=== PATIENT | female | born 1950 | race Caucasian/White ===

== ENCOUNTER 2023-01-21 11:24 | Outpatient (OUT) | payer MEDICARE, OTHER, SELFPAY ==
--- NOTE | 2023-01-21 11:27 | XR_ITS ---
[address] [address] Patient Name: YEE ANTUNEZ MRN: [id number] date: 1950 Sex: F Assigned Patient Location: RAD Current Patient Location: [facility] Accession/Order Number: [id number] Exam Date: 01/21/2023 11:42 Report Date: 01/21/2023 11:55 At the request of: NON-STAFF PHYSICIAN Procedure: XR DEXA axial skeleton EXAMINATION: XR DEXA axial skeleton HISTORY: Asymptomatic Menopause Z78.0 COMPARISON: DEXA bone densitometry 09/29/2020 TECHNIQUE: Dual-energy X-ray absorptiometry (DXA) was performed. FINDINGS: SPINE ANALYSIS: Average bone mineral density is 1.330 g/cm2. T-score (standard deviation relative to young adult mean): 1.2 . -6.6% change since prior study. HIP ANALYSIS: Lowest bone mineral density is within the left femoral trochanter, 0.66 g/cm2. T-score (standard deviation relative to young adult mean): -1.9 . -1.4% change since prior study. XR/XR DEXA axial skeleton IMPRESSION: [employer] [place] [employer] Classification: Osteopenia - Moderate Fracture Risk Electronically authenticated by: HA CARDOSO Date: 01/21/2023 11:55
== END 2023-01-21 11:25 | disposition home or self-care (01) ==
LOC: RAD 11:24
PROVIDERS: PCP Internal Medicine
DX: Z78.0 Asymptomatic menopausal state (principal); M85.88 Other specified disorders of bone density and structure, other site
CPT/HCPCS: 77080

== ENCOUNTER 2023-02-26 23:36 | Emergency (ER) | payer MEDICARE, OTHER, SELFPAY ==
--- NOTE | 2023-02-26 23:39 | ED_ITS ---
HPI - General Adult General Chief complaint: Skin/Abscess/Foreign Body Stated complaint: rash Time Seen by Provider: 02/26/23 23:39 History of Present Illness HPI narrative: pt presents emergency department complaining of a rash. Patient states she was getting ready for bed and she noticed a rash over her arms, chest and abdomen. She states she has not started any new medications denies any lotions, perfumes, detergents, or anything in her diet that she could be ALLERGIC to. She denies any sore throat, upper respiratory infection symptoms. She denies any cough, wheezing, chest pain, shortness of breath. She denies any throat swelling, difficulty swallowing. He did not take anything at home. Related Data Previous Rx's Medication Instructions Recorded diphenhydramine HCl 25 mg capsule 25 mg PO Q8H PRN allergic reaction 02/27/23 (Benadryl) #20 caps famotidine 20 mg tablet (Pepcid) 20 mg PO DAILY #20 tabs 02/27/23 prednisone 50 mg tablet 50 mg PO DAILY #5 tabs 02/27/23 Allergies Allergy/AdvReac Type Severity Reaction Status Date / Time codeine Allergy Mild Verified 02/26/23 23:49 levofloxacin Allergy Mild Verified 02/26/23 23:49 Sulfa (Sulfonamide Allergy Mild Verified 02/26/23 23:49 Antibiotics) bee venom Allergy Mild Uncoded 02/26/23 23:49 iv dye Allergy Uncoded 02/26/23 23:49 Review of Systems 2 ROS Status of ROS 10 or more systems reviewed and unremarkable except as noted in history and below Exam Narrative Exam Narrative: Nurses notes and vital signs reviewed and patient is not hypoxic. General: Nontoxic, Well-appearing and in no apparent distress. Skin: Warm, dry, no pallor noted. Diffuse hives to the abdomen, bilateral arms, and chest. Head: Normocephalic, atraumatic. Neck: Supple, non-tender. Eye: Pupils are equal, round and EOMI. No scleral icterus. Ears, Nose, Mouth, and Throat: TM clear,No tongue elevation, no trismus, oropharynx is clear without any edema noted. no posterior oropharynx erythema or nasal mucosal hypertrophy, uvula is mid-line, Oral mucosa is moist Cardiovascular: Regular Rate and Rhythm without murmur, gallop or rub. Respiratory: No accessory muscle use or respiratory distress. Lungs are clear to auscultation, no wheezing, rales or rhonchi Chest Wall: no tenderness Back: No midline thoracic or lumbar vertebral tenderness. No CVA tenderness Musculoskeletal: normal ROM, no calf or popliteal tenderness, no lower extremity edema/swelling GI: Abdomen is soft, non-distended. Normal bowel sounds. No masses appreciated. No tenderness to palpation. No rebound, guarding, or rigidity noted. Neurological: A&O x4. No cranial nerve dysfunction observed. No truncal ataxia. Moves all extremities. Sensation intact. Psychiatric: Cooperative and interactive. Normal mood and affect. Constitutional Vital Signs, click to edit/add: Last Vital Signs Temp 98.5 F 02/26/23 23:46 Pulse 63 02/26/23 23:46 Resp 20 02/27/23 00:09 BP 161/84 H 02/26/23 23:46 Pulse Ox 97 02/26/23 23:46 O2 Del Method Room Air 02/26/23 23:46 Course Vital Signs Vital signs: Vital Signs Temperature 98.5 F 02/26/23 23:46 Pulse Rate 63 02/26/23 23:46 Respiratory Rate 18 02/26/23 23:46 Blood Pressure 161/84 H 02/26/23 23:46 Pulse Oximetry 97 02/26/23 23:46 Oxygen Delivery Method Room Air 02/26/23 23:46 Temperature 98.5 F 02/26/23 23:46 Pulse Rate 63 02/26/23 23:46 Respiratory Rate 20 02/27/23 00:09 Blood Pressure 161/84 H 02/26/23 23:46 Pulse Oximetry 97 02/26/23 23:46 Oxygen Delivery Method Room Air 02/26/23 23:46 Medical Decision Making MDM Narrative Medical decision making narrative: Patient was given prednisone, famotidine, and Benadryl. Rash has provided in the emergency department. At this time the patient is without objective evidence of an acute process requiring hospitalization or inpatient management. The patient has remained hemodynamically stable. No additional indication for emergent studies at this time. I answered all questions. Discussed discharge instructions including standard anticipatory guidance and what should prompt a return to the emergency department, including if they get worse are not getting better or develops any new or concerning symptoms. I've given them specific time frame in which to follow-up, and who to follow-up with. The patient demonstrates understanding. Patient is nontoxic and stable for discharge with outpatient follow-up. This note was created with the assistance of a speech recognition program. Although the intention is to generate documents that actually reflects the content of the visit, no guarantees can be provided that every mistake has been identified and corrected by editing. Discharge Plan Discharge Chief Complaint: Skin/Abscess/Foreign Body Clinical Impression: Hives Patient Disposition: Home, Self-Care Time of Disposition Decision: 00:32 Condition: Good Mode of Transportation: Private Vehicle Prescriptions / Home Meds: New prednisone 50 mg tablet 50 mg PO DAILY Qty: 5 0RF famotidine [Pepcid] 20 mg tablet 20 mg PO DAILY Qty: 20 0RF diphenhydramine HCl [Benadryl] 25 mg capsule 25 mg PO Q8H PRN (Reason: allergic reaction) Qty: 20 0RF Instructions: [facility]ic[facility] (ED) Stand Alone Forms: Portal Instructions Referrals: [facility] [Other] - 1 week Discharge Date/Time: 02/27/23 01:23
[2023-02-26 23:46] VITALS: BP 161/84; PULSE 63; RESP 18; TEMP 36.9; O2SAT 97; BMI 52.5
[2023-02-27 00:09] VITALS: RESP 20
[2023-02-27] MEDS: FAMOTIDINE/PF 20 MG/2 ML VIAL IV (00:43)
[2023-02-27] MEDS: DIPHENHYDRAMINE HCL 50 MG/ML (1ML) VIAL 25 MG IV (00:43)
[2023-02-27] MEDS: METHYLPREDNISOLONE SOD SUCC PF 125 MG/2 ML VIAL IVP (00:44)
== END 2023-02-27 01:23 | disposition home or self-care (01) ==
PROVIDERS: Emergency Provider Emergency Medicine; PCP Internal Medicine
DX: L50.9 Urticaria, unspecified (principal)
CPT/HCPCS: 96374; 96375; 99284; J2930

== ENCOUNTER 2023-05-05 10:56 | Outpatient (OUT) | payer MEDICARE, OTHER, SELFPAY ==
--- NOTE | 2023-05-05 10:58 | MM_ITS ---
Patient Name: YEE ANTUNEZ MR#: [id number] : 1950 Exam Date: 05/05/2023 Ordering Doctor: DR JORGE GATES D.O. RADIOLOGY REPORT PROCEDURE: MM TOMOSYNTHESIS SCREENING BI COMPARISON: MG MAMM SCREEN 3D [facility] CAD, 04/09/2022. MG MAMM SCREEN 3D [facility] CAD, 03/09/2021. MG MAMM SCREEN [facility]ES W CAD, 03/04/2020. MG MAMM SCREEN [facility]ES W CAD, 07/03/2014. INDICATIONS: Screening Calculator Name NCI Breast Cancer Risk Assessment Tool 5 Year Breast Cancer Risk 4.10% Lifetime Breast Cancer Risk 9.80% Personal Breast Cancer No Personal Ovarian Cancer No Treatments None Family Cancers Sister with breast cancer at age ~48; Aunt-maternal with breast cancer at age ~65; Cousin-maternal with breast cancer at age ~40; Aunt-maternal with ovarian cancer at age ~50; Father with colon cancer at age ~70; Mother with esophageal cancer at age ~87; Grandmother-paternal with unknown cancer at age ~58. LOCATION: [facility] BREAST COMPOSITION: Scattered areas fibroglandular density. FINDINGS: DIAGNOSTIC CATEGORY 1--NEGATIVE. RIGHT BREAST: No significant suspicious finding. No significant change has occurred. LEFT BREAST: No significant suspicious finding. No significant change has occurred. RECOMMENDATIONS: ROUTINE MAMMOGRAM AND CLINICAL EVALUATION IN 12 MONTHS. PLEASE NOTE: A NORMAL MAMMOGRAM DOES NOT EXCLUDE THE POSSIBILITY OF BREAST CANCER. A CLINICALLY SUSPICIOUS PALPABLE LUMP SHOULD BE BIOPSIED. Dictated by: Timmy Vargas M.D. on 05/05/2023 at 12:03 Approved by: Timmy Vargas M.D. on 05/05/2023 at 12:06
== END 2023-05-05 10:57 | disposition home or self-care (01) ==
LOC: MAMMO 10:56
PROVIDERS: PCP Internal Medicine; Visit Provider Internal Medicine
DX: Z12.31 Encounter for screening mammogram for malignant neoplasm of breast (principal); Z80.3 Family history of malignant neoplasm of breast; Z80.0 Family history of malignant neoplasm of digestive organs; Z80.9 Family history of malignant neoplasm, unspecified; Z80.41 Family history of malignant neoplasm of ovary
CPT/HCPCS: 77063; 77067

== ENCOUNTER 2024-06-25 12:42 | Outpatient (OUT) | payer MEDICARE, OTHER, SELFPAY ==
--- NOTE | 2024-06-25 12:43 | MM_ITS ---
Patient Name: YEE ANTUENZ MR#: [id number] : 1950 Exam Date: 06/25/2024 Ordering Doctor: DR JORGE GATES D.O. RADIOLOGY REPORT PROCEDURE: MM TOMOSYNTHESIS SCREENING BI COMPARISON: MM TOMOSYNTHESIS SCREENING BI, 05/05/2023. MG MAMM SCREEN 3D [facility] CAD, 04/09/2022. MG MAMM SCREEN 3D [facility] CAD, 03/09/2021. MG MAMM SCREEN [facility]ES W CAD, 07/03/2014. INDICATIONS: Screening Calculator Name NCI Breast Cancer Risk Assessment Tool 5 Year Breast Cancer Risk 4.10% Lifetime Breast Cancer Risk 9.30% Personal Breast Cancer No Personal Ovarian Cancer No Treatments None Family Cancers Sister with breast cancer at age ~48; Aunt-maternal with breast cancer at age ~65; Cousin-maternal with breast cancer at age ~40; Aunt-maternal with ovarian cancer at age ~50; Father with colon cancer at age ~70; Mother with esophageal cancer at age ~87; Grandmother-paternal with unknown cancer at age ~58. LOCATION: [facility] BREAST COMPOSITION: There are scattered areas of fibroglandular density. FINDINGS: DIAGNOSTIC CATEGORY 2--BENIGN FINDING: RIGHT BREAST: No significant suspicious finding. Scattered benign-appearing calcifications are present. No significant change has occurred. LEFT BREAST: No significant suspicious finding. Scattered benign-appearing calcifications are present. No significant change has occurred. RECOMMENDATIONS: ROUTINE MAMMOGRAM AND CLINICAL EVALUATION IN 12 MONTHS. PLEASE NOTE: A NORMAL MAMMOGRAM DOES NOT EXCLUDE THE POSSIBILITY OF BREAST CANCER. A CLINICALLY SUSPICIOUS PALPABLE LUMP SHOULD BE BIOPSIED. Dictated by: Timmy Vargas M.D. on 06/25/2024 at 17:04 Approved by: Timmy Vargas M.D. on 06/25/2024 at 17:05
--- OUTSIDE RECORDS SUMMARY | 2024-06-25 13:03 | XMS_ITS | CCD ---
Author Organization [facility] Care Team Providers Care Division Controller Name Role Phone YAJAIRA, DR PATEL Admitting Unavailable YAJAIRA, DR PATEL Attending Unavailable YAJAIRA, DR PATEL Primary Care Unavailable YAJAIRA, DR PATEL Consulting Unavailable WEST, DR GISELLE Kirby Consulting Unavailable MD Anuj Diaz Attending Provider Kt Gates Primary Care Unavailable Anuj Diaz Attending Unavailable Anuj Diaz Admitting Unavailable ZACARIAS HILTON Attending Unavailable Allergies Allergy Classification Reported Allergen(s) Allergy Type Date of Onset Reaction(s) Facility (1 source) Azithromycin Drug Allergy 4 [facility] Repository (2 sources) Bee pollen; Translations: [BEE POLLEN] Drug allergy (disorder) 4 [facility] Repository (2 sources) Codeine; Translations: [CODEINE] Drug Allergy 1 [facility] Repository (1 source) Iodine (And Iodine Containting Drugs) Drug allergy (disorder) 4 [facility] Repository (1 source) Sulfonamides (Antibiotic) Drug allergy (disorder) 4 [facility] Repository (1 source) Contrast media; Translations: [DYE] Propensity to adverse reactions to drug (disorder) 2 [facility] Repository (1 source) levoFLOXacin; Translations: [LEVOFLOXACIN] Drug Allergy 2 [facility] Repository (1 source) Sulfonamides (Antibiotic); Translations: [SULFA (SULFONAMIDE ANTIBIOTICS)] Propensity to adverse reactions to drug (disorder) 1 [facility] Repository Problems Problem Classification Problem Date Documented Da te Episodic/Chronic Nonspecific chest pain (2 sources) Other chest pain; Translations: [Other chest pain] Onset: 06-05-2024 Episodic Other non-traumatic joint disorders (1 source) Pain in unspecified joint; Translations: [Pain in unspecified joint] Onset: 11-10-2023 Episodic Other screening for suspected conditions (not mental disorders or infectious disease) (4 sources) Encounter for screening mammogram for malignant neoplasm of breast; Translations: [ENC SCR MAMMO MALIG NEOPLASM BREAST] Onset: 04-09-2022 Episodic Residual codes; unclassified (1 source) Family history of malignant neoplasm of breast; Translations: [FAMILY HX MALIG NEOPLASM OF BREAST] Onset: 04-14-2022 Episodic Residual codes; unclassified (1 source) Family history of malignant neoplasm of digestive organs; Translations: [FAM HX MALIG NEOPLASM DIGESTIV ORGN] Onset: 04-14-2022 Episodic Residual codes; unclassified (1 source) Family history of malignant neoplasm of ovary; Translations: [FAM HX MALIGNANT NEOPLASM OVARY] Onset: 04-14-2022 Episodic Residual codes; unclassified (1 source) Family history of malignant neoplasm of other organs or systems; Translations: [FAM HX MALIG NEOPLASM OTH ORGN/SYS] Onset: 04-14-2022 Episodic Residual codes; unclassified (1 source) Family history of malignant neoplasm, unspecified; Translations: [FAM HX MALIGNANT NEOPLASM UNS] Onset: 04-14-2022 Episodic Results Test Name Value Interpretation Reference Range Facility Orders Onlyon 06-05-2024 Orders Only [id number] Lucy Valverde S 1950 F Date Provider Department Center 06/05/2024 JUAN LUIS MCLEAN CARD [facility] Family History Problem Relation Age of Onset Supraventricular tachycardia Mother's Sister Stroke Mother's Sister Other Maternal Grandmother Stroke Paternal Grandfather Family Status - Relation Status Age at Mother's Sister Maternal Grandmother Paternal Grandfather Normal [facility] SANJUANITA Antinuclear Antibodieson 11-10-2023 Antinuclear Abs, IFA Negative Normal . [facility] Comment on above: Result Comment: Nega tive <1:80 Borderline 1:80 Positive >1:80 ICAP nomenclature: AC-0 For more information about Hep-2 cell patterns use ANApatterns.org, the official website for the International Consensus on Antinuclear Antibody (SANJUANITA) Patterns (ICAP). Performed at: [address] [id number] Chief Green Officer: Cooper Hernandez PhD, Phone: [phone] Performed By: #### T HYGLOB AB, CH50, C3, TPO, SANJUANITA, CHROMATIN, C4 #### [facility] , Activated partial thrombopla stin time (aPTT) in platelet poor plasma by coagulation aOrdered By: Anuj Diaz on 11-10-2023 aPTT Coag (PPP) [Time] 39.3 s 25.1-36.5 [facility] Comment on above: A hematocrit value g reater than 55% may lead to inaccurate results in coagulation testing. Patients having hematocrit values >55% require a special collection tube for coagulation studies. Please contact the laboratory at [phone] for redraw instructions. Alanine aminotransferase [En zymatic activity/volume] in Serum or PlasmaOrdered By: Anuj Diaz on 11-10-2023 ALT [Catalytic activity/Vol] 25 U/L 7-52 [facility] Albumin [Mass/volume] in Ser um or Plasma by Bromocresol green (BCG) dye binding methoOrdered By: Anuj Diaz on 11-10-2023 Albumin BCG dye [Mass/Vol] 4.2 g/dL 3.5-5.7 [facility] Aldolaseon 11-10-2023 Aldolase 4.3 U/L Normal 3.3-10.3 [facility] Comment on above: Result Comment: Perf ormed at: - [facility] [address] [id number] Chief Green Officer: Cooper Hernandez PhD, Phone: [phone] PERFORMED BY: [address] [place] [address] PATHOLOGIST PROTOTYPE CARPENTER VANDA FARRAR M.D. Performed By: #### T HYGLOB AB, CH50, C3, TPO, SANJUANITA, CHROMATIN, C4 #### [facility] , Alkaline phosphatase [Enzyma tic activity/volume] in Serum or PlasmaOrdered By: Anuj Diaz on 11-10-2023 ALP [Catalytic activity/Vol] 66 U/L 34-104 [facility] Antithyroglobulin Abon 11-09 Antithyroglobulin Ab <1.0 Normal 0.0-0.9 [facility] Comment on above: Result Comment: Thyr oglobulin Antibody measured by [employer] Methodology It should be noted that the presence of thyroglobulin antibodies may not be pathogenic nor diagnostic, especially at very low levels. The assay building stonecutter has found that four percent of individuals without evidence of thyroid disease or autoimmunity will have positive TgAb levels up to 4 IU/mL. Performed at: [address] [id number] Chief Green Officer: Cooper Hernandez PhD, Phone: [phone] Performed By: #### T HYGLOB AB, CH50, C3, TPO, SANJUANITA, CHROMATIN, C4 #### [facility] , Aspartate aminotransferase [ Enzymatic activity/volume] in Serum or PlasmaOrdered By: Anuj Diaz on 11-10-2023 AST [Catalytic activity/Vol] 22 U/L 13-39 [facility] Bacteria [Presence] in Urine by AutomatedOrdered By: Anuj Diaz on 11-10-2023 Bacteria Auto Ql (U) None seen [HPF] None Seen [facility] Basophils Auto (Bld) [#/Vol] Ordered By: Anuj Diaz on 11-10-2023 Basophils (Bld) [#/Vol] 0.1 10*3/uL 0.0-0.2 [facility] Basophils/100 WBC Auto (Bld) Ordered By: Anuj Diaz on 11-10-2023 Basophils/100 WBC (Bld) 1.0 % . [facility] Bilirubin Test strip Ql (U)O rdered By: Anuj Diaz on 11-10-2023 Bilirubin Ql (U) Negative Negative [facility] Bilirubin.total [Mass/volume ] in Serum or PlasmaOrdered By: Anuj Diaz on 11-10-2023 Bilirubin [Mass/Vol] 1.1 mg/dL 0.3-1.0 [facility] C reactive protein [Mass/vol ume] in Serum or PlasmaOrdered By: Anuj Diaz on 11-10-2023 CRP [Mass/Vol] < 0.5 mg/dL 0.0-0.5 [facility] C-Reactive Proteinon 024 CRP [Mass/Vol] mg/L Normal 0.0-0.5 [facility] Comment on above: Performed By: #### T HYGLOB AB, CH50, C3, TPO, SANJUANITA, CHROMATIN, C4 #### [facility] , Calcium [Mass/volume] in Ser um or PlasmaOrdered By: Anuj Diaz on 11-10-2023 Calcium [Mass/Vol] 9.3 mg/dL 8.6-10.3 [facility] Carbon dioxide, total [Moles /volume] in Serum or PlasmaOrdered By: Anuj Diaz on 11-10-2023 CO2 [Moles/Vol] 33.2 mmol/L 21.0-31.0 [facility] Chloride [Moles/volume] in S emile or PlasmaOrdered By: Anuj Diaz on 11-10-2023 Chloride [Moles/Vol] 101 mmol/L 98-107 [facility] Chromatin Antibodyon 024 Chromatin Antibody <0.2 Normal 0.0-0.9 [facility] Comment on above: Result Comment: Perf ormed at: CB - [facility] [address] [id number] Chief Green Officer: Cooper Hernandez PhD, Phone: [phone] PERFORMED BY: [address] [address] PATHOLOGIST PROTOTYPE CARPENTER VANDA FARRAR M.D. Performed By: #### T HYGLOB AB, CH50, C3, TPO, SANJUANITA, CHROMATIN, C4 #### [facility] , Coagulation Profileon 2023 aPTT Coag (Bld) [Time] 39.3 s High 25.1-36.5 [facility] Comment on above: Result Comment: A he matocrit value greater than 55% may lead to inaccurate results in coagulation testing. Patients having hematocrit values >55% require a special collection tube for coagulation studies. Please contact the laboratory at [phone] for redraw instructions. PERFORMED BY: [address] [place] [address] PATHOLOGIST PROTOTYPE CARPENTER VANDA FARRAR M.D. Performed By: #### T HYGLOB AB, CH50, C3, TPO, SANJUANITA, CHROMATIN, C4 #### [facility] , INR Coag (PPP) [Relative time] 0.9 {INR} Normal [facility] Comment on above: Result Comment: INR Therapeutic Range A) Pre- and Peroperative OAT started two weeks before surgery. NOT HIP SURGERY: 1.5 - 2.5 HIP SURGERY: 2 - 3 B) Primary and secondary prevention of venous THROMBOSIS: 2 - 3 C) Active venous thrombosis, pulmonary embolism and prevention of recurrent venous thrombosis: 2 - 3 D) Prevention of arterial thromboembolism including patients with mechanical heart valves: 3 - 4.5 Performed By: #### T HYGLOB AB, CH50, C3, TPO, SANJUANITA, CHROMATIN, C4 #### [facility] , PT Coag (PPP) [Time] 11.0 s Normal 9.0-12.9 [facility] Comment on above: Result Comment: A he matocrit value greater than 55% may lead to inaccurate results in coagulation testing. Patients having hematocrit values >55% require a special collection tube for coagulation studies. Please contact the laboratory at [phone] for redraw instructions. Performed By: #### T HYGLOB AB, CH50, C3, TPO, SANJUANITA, CHROMATIN, C4 #### [facility] , Color Auto (U)Ordered By: Rosalino Diaz on 11-10-2023 Color (U) Yellow [facility] Complement C3on 11-10-2023 Complement C3 157 mg/dL Normal 82-167 [facility] Comment on above: Result Comment: Perf ormed at: - [facility] [address] [id number] Chief Green Officer: Cooper Hernandez PhD, Phone: [phone] Performed By: #### T HYGLOB AB, CH50, C3, TPO, SANJUANITA, CHROMATIN, C4 #### [facility] , Complement C4on 05-16-2024 Complement C4 29 mg/dL Normal 12-38 [facility] Comment on above: Performed By: #### T HYGLOB AB, CH50, C3, TPO, SANJUANITA, CHROMATIN, C4 #### [facility] , Complement Total (CH50)on Complement Total (CH50) >60 Normal >41 [facility] Comment on above: Result Comment: Age Male Female 1 - 30 days Not Estab. Not Estab. 31 days - 6 months >32 >20 7 months - 17 years >39 >39 >17 years >41 >41 NOTE: The adult ( >17 years ) reference interval range is used to flag abnormals on this report. If the patient is 17 years old or younger, use the table above to determine out of range values. Performed at: [address] [id number] Chief Green Officer: Cooper Hernandez PhD, Phone: [phone] PERFORMED BY: [place] [address] PATHOLOGIST PROTOTYPE CARPENTER VANDA FARRAR M.D. Performed By: #### T HYGLOB AB, CH50, C3, TPO, SANJUANITA, CHROMATIN, C4 #### [facility] , Complete Blood Count Auto Di ffon 11-10-2023 Basophils (Bld) [#/Vol] 0.1 10*3/uL Normal 0.0-0.2 [facility] Comment on above: Performed By: #### T HYGLOB AB, CH50, C3, TPO, SANJUANITA, CHROMATIN, C4 #### [facility] , Basophils/100 WBC (Bld) 1.0 % Normal . [facility] Comment on above: Performed By: #### T HYGLOB AB, CH50, C3, TPO, SANJUANITA, CHROMATIN, C4 #### [facility] , Eosinophils (Bld) [#/Vol] 0.2 10*3/uL Normal 0.0-0.45 [facility] Comment on above: Performed By: #### T HYGLOB AB, CH50, C3, TPO, SANJUANITA, CHROMATIN, C4 #### [facility] , Eosinophils/100 WBC (Bld) 2.8 % Normal . [facility] Comment on above: Performed By: #### T HYGLOB AB, CH50, C3, TPO, SANJUANITA, CHROMATIN, C4 #### [facility] , Erythrocyte distribution width (RBC) [Ratio] 15.9 % High 11.9-15.3 [facility] Comment on above: Performed By: #### T HYGLOB AB, CH50, C3, TPO, SANJUANITA, CHROMATIN, C4 #### [facility] , Hematocrit (Bld) [Volume fraction] 42.8 % Normal 34.0-46.4 [facility] Comment on above: Performed By: #### T HYGLOB AB, CH50, C3, TPO, SANJUANITA, CHROMATIN, C4 #### [facility] , Hemoglobin (Bld) [Mass/Vol] 14.4 g/dL Normal 11.8-15.4 [facility] Comment on above: Performed By: #### T HYGLOB AB, CH50, C3, TPO, SANJUANITA, CHROMATIN, C4 #### [facility] , Lymphocytes (Bld) [#/Vol] 1.3 10*3/uL Normal 1.00-4.8 [facility] Comment on above: Performed By: #### T HYGLOB AB, CH50, C3, TPO, SANJUANITA, CHROMATIN, C4 #### [facility] , Lymphocytes/100 WBC (Bld) 17.2 % Normal . [facility] Comment on above: Performed By: #### T HYGLOB AB, CH50, C3, TPO, SANJUANITA, CHROMATIN, C4 #### [facility] , MCH (RBC) [Entitic mass] 31.6 pg Normal 24.7-34.3 [facility] Comment on above: Performed By: #### T HYGLOB AB, CH50, C3, TPO, SANJUANITA, CHROMATIN, C4 #### [facility] , MCV (RBC) [Entitic vol] 93.6 fL Normal 80-100 [facility] Comment on above: Performed By: #### T HYGLOB AB, CH50, C3, TPO, SANJUANITA, CHROMATIN, C4 #### [facility] , Mean Corpuscular HGB Conc 33.7 g/dL Normal 32.0-35.0 [facility] Comment on above: Performed By: #### T HYGLOB AB, CH50, C3, TPO, SANJUANITA, CHROMATIN, C4 #### [facility] , Monocytes (Bld) [#/Vol] 0.9 10*3/uL High 0.0-0.8 [facility] Comment on above: Performed By: #### T HYGLOB AB, CH50, C3, TPO, SANJUANITA, CHROMATIN, C4 #### [facility] , Monocytes/100 WBC (Bld) 10.9 % Normal . [facility] Comment on above: Performed By: #### T HYGLOB AB, CH50, C3, TPO, SANJUANITA, CHROMATIN, C4 #### [facility] , Neutrophils (Bld) [#/Vol] 5.3 10*3/uL Normal 1.8-7.7 [facility] Comment on above: Performed By: #### T HYGLOB AB, CH50, C3, TPO, SANJUANITA, CHROMATIN, C4 #### [facility] , Neutrophils/100 WBC (Bld) 68.1 % Normal . [facility] Comment on above: Performed By: #### T HYGLOB AB, CH50, C3, TPO, SANJUANITA, CHROMATIN, C4 #### [facility] , NRBC% 0.1 /100{WBC} Normal 0-0.5 [facility] Comment on above: Performed By: #### T HYGLOB AB, CH50, C3, TPO, SANJUANITA, CHROMATIN, C4 #### [facility] , Platelet mean volume (Bld) [Entitic vol] 7.6 fL Normal 6.3-10.7 [facility] Comment on above: Performed By: #### T HYGLOB AB, CH50, C3, TPO, SANJUANITA, CHROMATIN, C4 #### [facility] , Platelets (Bld) [#/Vol] 305 10*3/uL Normal 150-450 [facility] Comment on above: Performed By: #### T HYGLOB AB, CH50, C3, TPO, SANJUANITA, CHROMATIN, C4 #### [facility] , RBC (Bld) [#/Vol] 4.57 10*6/uL Normal 3.60-5.00 [facility] Comment on above: Performed By: #### T HYGLOB AB, CH50, C3, TPO, SANJUANITA, CHROMATIN, C4 #### [facility] , WBC (Bld) [#/Vol] 7.8 10*3/uL Normal 3.8-11.6 [facility] Comment on above: Performed By: #### T HYGLOB AB, CH50, C3, TPO, SANJUANITA, CHROMATIN, C4 #### [facility] , Comprehensive Metabolic Pane alia 11-10-2023 Albumin [Mass/Vol] 4.2 g/dL Normal 3.5-5.7 [facility] Comment on above: Performed By: #### T HYGLOB AB, CH50, C3, TPO, SANJUANITA, CHROMATIN, C4 #### [facility] , Albumin/Globulin [Mass ratio] 1.9 {ratio} Normal [facility] Comment on above: Performed By: #### T HYGLOB AB, CH50, C3, TPO, SANJUANITA, CHROMATIN, C4 #### [facility] , ALP [Catalytic activity/Vol] 66 U/L Normal 34-104 [facility] Comment on above: Performed By: #### T HYGLOB AB, CH50, C3, TPO, SANJUANITA, CHROMATIN, C4 #### [facility] , ALT [Catalytic activity/Vol] 25 U/L Normal 7-52 [facility] Comment on above: Performed By: #### T HYGLOB AB, CH50, C3, TPO, SANJUANITA, CHROMATIN, C4 #### [facility] , Anion gap [Moles/Vol] 10.6 mmol/L Normal 6.0-15.0 [facility] e [facility] Comment on above: Performed By: #### T HYGLOB AB, CH50, C3, TPO, SANJUANITA, CHROMATIN, C4 #### [facility] , AST [Catalytic activity/Vol] 22 U/L Normal 13-39 [facility] Comment on above: Performed By: #### T HYGLOB AB, CH50, C3, TPO, SANJUANITA, CHROMATIN, C4 #### [facility] , Bilirubin [Mass/Vol] 1.1 mg/dL High 0.3-1.0 [facility] Comment on above: Performed By: #### T HYGLOB AB, CH50, C3, TPO, SANJUANITA, CHROMATIN, C4 #### [facility] , Calcium [Mass/Vol] 9.3 mg/dL Normal 8.6-10.3 [facility] Comment on above: Performed By: #### T HYGLOB AB, CH50, C3, TPO, SANJUANITA, CHROMATIN, C4 #### [facility] , Chloride [Moles/Vol] 101 mmol/L Normal 98-107 [facility] Comment on above: Performed By: #### T HYGLOB AB, CH50, C3, TPO, SANJUANITA, CHROMATIN, C4 #### [facility] , CO2 [Moles/Vol] 33.2 mmol/L High 21.0-31.0 [facility] Comment on above: Performed By: #### T HYGLOB AB, CH50, C3, TPO, SANJUANITA, CHROMATIN, C4 #### [facility] , Creatinine [Mass/Vol] 0.84 mg/dL Normal 0.60-1.20 [facility] Comment on above: Performed By: #### T HYGLOB AB, CH50, C3, TPO, SANJUANITA, CHROMATIN, C4 #### [facility] , GFR/1.73 sq M.predicted MDRD (S/P/Bld) [Vol rate/Area] mL/min/{1.73_m2} Normal [facility] Comment on above: Performed By: #### T HYGLOB AB, CH50, C3, TPO, SANJUANITA, CHROMATIN, C4 #### [facility] , Globulin (S) [Mass/Vol] 2.2 g/dL Normal [facility] Comment on above: Performed By: #### T HYGLOB AB, CH50, C3, TPO, SANJUANITA, CHROMATIN, C4 #### [facility] , Glucose [Mass/Vol] 93 mg/dL Normal 70-100 [facility] Comment on above: Result Comment: [place] Glucose Reference Range is dependent on time and content of last meal. Glucose of more than 200 mg/dL in a nonstressed, ambulatory subject supports the diagnosis of Diabetes Mellitus. ADA recommended reference range Performed By: #### T HYGLOB AB, CH50, C3, TPO, SANJUANITA, CHROMATIN, C4 #### [facility] , Potassium [Moles/Vol] 3.8 mmol/L Normal 3.5-5.1 [facility] Comment on above: Performed By: #### T HYGLOB AB, CH50, C3, TPO, SANJUANITA, CHROMATIN, C4 #### [facility] , Protein [Mass/Vol] 6.4 g/dL Normal 6.4-8.9 [facility] Comment on above: Performed By: #### T HYGLOB AB, CH50, C3, TPO, SANJUANITA, CHROMATIN, C4 #### [facility] , Sodium [Moles/Vol] 141 mmol/L Normal 136-145 [facility] Comment on above: Performed By: #### T HYGLOB AB, CH50, C3, TPO, SANJUANITA, CHROMATIN, C4 #### [facility] , Urea nitrogen [Mass/Vol] 15 mg/dL Normal 7-25 [facility] Comment on above: Performed By: #### T HYGLOB AB, CH50, C3, TPO, SANJUANITA, CHROMATIN, C4 #### [facility] , Creatine Kinaseon 11-10-2023 CK [Catalytic activity/Vol] 72 U/L Normal [facility] Comment on above: Result Comment: PERF ORMED BY: [place] [address] PATHOLOGIST PROTOTYPE CARPENTER VANDA FARRAR M.D. Performed By: #### P P, CRP, ADDONUAPLUS, CK, ESR, TSH3, CBC, T4F, CMP #### [address] #### ALDOLASE, RPR W RFX #### [facility] , Creatine kinase [Enzymatic a ctivity/volume] in Serum or PlasmaOrdered By: Anuj Diaz on 11-10-2023 CK [Catalytic activity/Vol] 72 U/L - [facility] Creatinine [Mass/volume] in Serum or PlasmaOrdered By: Anuj Diaz on 11-10-2023 Creatinine [Mass/Vol] 0.84 mg/dL 0.60-1.20 [facility] Dipstick and Microscopicon 0 11-10-2023 Appearance (U) Turbid Critically abnormal Clear [facility] Comment on above: Order Comment: Name Collection Type:: Clean-Voided Midstream Performed By: #### P P, CRP, ADDONUAPLUS, CK, ESR, TSH3, CBC, T4F, CMP #### [facility] [address] [place] [address] #### ALDOLASE, RPR W RFX #### [facility] , Bacteria,Urine None Seen Normal None Seen [facility] Comment on above: Order Comment: Name Collection Type:: Clean-Voided Midstream Performed By: #### P P, CRP, ADDONUAPLUS, CK, ESR, TSH3, CBC, T4F, CMP #### [address] #### ALDOLASE, RPR W RFX #### [facility] , Bilirubin,Urine Negative Normal Negative [facility] Comment on above: Order Comment: Name Collection Type:: Clean-Voided Midstream Performed By: #### P P, CRP, ADDONUAPLUS, CK, ESR, TSH3, CBC, T4F, CMP #### [address] #### ALDOLASE, RPR W RFX #### [facility] , Color (U) Yellow Normal Yellow [facility] Comment on above: Order Comment: Name Collection Type:: Clean-Voided Midstream Performed By: #### P P, CRP, ADDONUAPLUS, CK, ESR, TSH3, CBC, T4F, CMP #### [address] #### ALDOLASE, RPR W RFX #### [facility] , Glucose Ql (U) Normal Normal Normal [facility] Comment on above: Order Comment: Name Collection Type:: Clean-Voided Midstream Performed By: #### P P, CRP, ADDONUAPLUS, CK, ESR, TSH3, CBC, T4F, CMP #### [address] #### ALDOLASE, RPR W RFX #### [facility] , Hyaline Casts,Urine None Seen Normal 0-8 [facility] Comment on above: Order Comment: Name Collection Type:: Clean-Voided Midstream Result Comment: PERF ORMED BY: [place] [address] PATHOLOGIST PROTOTYPE CARPENTER VANDA FARRAR M.D. Performed By: #### P P, CRP, ADDONUAPLUS, CK, ESR, TSH3, CBC, T4F, CMP #### [address] #### ALDOLASE, RPR W RFX #### [facility] , Ketones Ql (U) Negative Normal Negative [facility] Comment on above: Order Comment: Name Collection Type:: Clean-Voided Midstream Performed By: #### P P, CRP, ADDONUAPLUS, CK, ESR, TSH3, CBC, T4F, CMP #### [address] #### ALDOLASE, RPR W RFX #### [facility] , Leukocyte esterase Test strip Ql (U) Negative Normal Negative [facility] Comment on above: Order Comment: Name Collection Type:: Clean-Voided Midstream Performed By: #### P P, CRP, ADDONUAPLUS, CK, ESR, TSH3, CBC, T4F, CMP #### [address] #### ALDOLASE, RPR W RFX #### [facility] , Nitrite,Urine Negative Normal Negative [facility] Comment on above: Order Comment: Name Collection Type:: Clean-Voided Midstream Performed By: #### P P, CRP, ADDONUAPLUS, CK, ESR, TSH3, CBC, T4F, CMP #### [address] #### ALDOLASE, RPR W RFX #### [facility] , Occult Blood,Urine Negative Normal Negative [facility] [facility] Comment on above: Order Comment: Name Collection Type:: Clean-Voided Midstream Performed By: #### P P, CRP, ADDONUAPLUS, CK, ESR, TSH3, CBC, T4F, CMP #### [address] #### ALDOLASE, RPR W RFX #### [facility] , pH (U) 7.5 [pH] Normal 5.0-9.0 [facility] Comment on above: Order Comment: Name Collection Type:: Clean-Voided Midstream Performed By: #### P P, CRP, ADDONUAPLUS, CK, ESR, TSH3, CBC, T4F, CMP #### [address] #### ALDOLASE, RPR W RFX #### [facility] , Protein,Urine Negative Normal Negative [facility] Comment on above: Order Comment: Name Collection Type:: Clean-Voided Midstream Performed By: #### P P, CRP, ADDONUAPLUS, CK, ESR, TSH3, CBC, T4F, CMP #### [address] #### ALDOLASE, RPR W RFX #### [facility] , RBC LM.HPF (Urine sed) [#/Area] 0 /[HPF] Normal 0-4 [facility] Comment on above: Order Comment: Name Collection Type:: Clean-Voided Midstream Performed By: #### P P, CRP, ADDONUAPLUS, CK, ESR, TSH3, CBC, T4F, CMP #### [address] #### ALDOLASE, RPR W RFX #### [facility] , Specificy [place],Urine 1.019 Normal 1.001-1.03 0 [facility] Comment on above: Order Comment: Name Collection Type:: Clean-Voided Midstream Performed By: #### P P, CRP, ADDONUAPLUS, CK, ESR, TSH3, CBC, T4F, CMP #### [address] #### ALDOLASE, RPR W RFX #### [facility] , Squamous Epithelial Cell,Urine None Seen Normal 0-2 [facility] Comment on above: Order Comment: Name Collection Type:: Clean-Voided Midstream Performed By: #### P P, CRP, ADDONUAPLUS, CK, ESR, TSH3, CBC, T4F, CMP #### [address] #### ALDOLASE, RPR W RFX #### [facility] , Urobilinogen,Urine Normal Normal Normal [facility] Comment on above: Order Comment: Name Collection Type:: Clean-Voided Midstream Performed By: #### P P, CRP, ADDONUAPLUS, CK, ESR, TSH3, CBC, T4F, CMP #### [facility] [address] [place] [address] #### ALDOLASE, RPR W RFX #### [facility] , WBC LM.HPF (Urine sed) [#/Area] 0 /[HPF] Normal 0-4 [facility] Comment on above: Order Comment: Name Collection Type:: Clean-Voided Midstream Performed By: #### P P, CRP, ADDONUAPLUS, CK, ESR, TSH3, CBC, T4F, CMP #### [facility] [address] [place] [address] #### ALDOLASE, RPR W RFX #### [facility] , Eosinophils Auto (Bld) [#/Vo l]Ordered By: Anuj Diaz on 11-10-2023 Eosinophils (Bld) [#/Vol] 0.2 10*3/uL 0.0-0.45 [facility] Eosinophils/100 WBC Auto (Bl d)Ordered By: Anuj Diaz on 11-10-2023 Eosinophils/100 WBC (Bld) 2.8 % . [facility] Erythrocyte Sedimentation Ra silverio 11-10-2023 ESR (Bld) [Velocity] 16 mm/h Normal 0-29 [facility] Comment on above: Result Comment: PERF ORMED BY: [place] [address] PATHOLOGIST PROTOTYPE CARPENTER VANDA FARRAR M.D. Performed By: #### T HYGLOB AB, CH50, C3, TPO, SANJUANITA, CHROMATIN, C4 #### [facility] , Erythrocyte distribution wid th Auto (RBC) [Ratio]Ordered By: Anuj Diaz on 11-10-2023 Erythrocyte distribution width (RBC) [Ratio] 15.9 % 11.9-15.3 [facility] Erythrocyte sedimentation ra te by Photometric methodOrdered By: Anuj Diaz on 11-10-2023 ESR Photometric method (Bld) [Velocity] 16 mm/hr 0-29 [facility] Erythrocytes [#/area] in Uri ne sediment by Automated countOrdered By: Anuj Diaz on 11-10-2023 RBC Auto (Urine sed) [#/Area] 0-1 [HPF] 0-4 [facility] Free T4 (Free Thyroxine)on 0 - Free T4 [Mass/Vol] 1.21 ng/dL High 0.61-1.12 [facility] Comment on above: Performed By: #### T HYGLOB AB, CH50, C3, TPO, SANJUANITA, CHROMATIN, C4 #### [facility] , Globulin Calc (S) [Mass/Vol] Ordered By: Anuj Diaz on 11-10-2023 Globulin (S) [Mass/Vol] 2.2 g/dL [facility] Glucose [Mass/volume] in Ser um or PlasmaOrdered By: Anuj Diaz on 11-10-2023 Glucose [Mass/Vol] 93 mg/dL 70-100 [facility] Comment on above: ADA recommended refe rence rangeRandom Glucose Reference Range is dependent on time and content of last meal. Glucose of more than 200 mg/dL in a nonstressed, ambulatory subject supports the diagnosis of Diabetes Mellitus. Hematocrit Auto (Bld) [Volum e fraction]Ordered By: Anuj Diaz on 11-10-2023 Hematocrit (Bld) [Volume fraction] 42.8 % 34.0-46.4 [facility] Hemoglobin [Mass/volume] in BloodOrdered By: Anuj Diaz on 11-10-2023 Hemoglobin (Bld) [Mass/Vol] 14.4 g/dL 11.8-15.4 [facility] INR in Platelet poor plasma by Coagulation assayOrdered By: Anuj Diaz on 11-10-2023 INR Coag (PPP) [Relative time] 0.9 {INR} [facility] Comment on above: INR Therapeutic Rang e A) Pre- and Peroperative OAT started two weeks before surgery. NOT HIP SURGERY: 1.5 - 2.5 HIP SURGERY: 2 - 3B) Primary and secondary prevention of venous THROMBOSIS: 2 - 3C) Active venous thrombosis, pulmonary embolismand prevention of recurrent venous thrombosis: 2 - 3D) Prevention of arterial thromboembolismincluding patients with mechanical heart valves: 3 - 4.5 Ketones Auto test strip (U) [Mass/Vol]Ordered By: Anuj Diaz on 11-10-2023 Ketones (U) [Mass/Vol] Negative Negative [facility] - UrinalysisOrder ed By: Anuj Rossrow on 11-10-2023 Hyaline casts LM Ql (Urine sed) None seen [LPF] 0-8 [facility] Leukocytes [#/area] in Urine sediment by Automated countOrdered By: Anuj Rossrow on 11-10-2023 WBC Auto (Urine sed) [#/Area] 0-1 [HPF] 0-4 [facility] Leukocytes [#/volume] correc javier for nucleated erythrocytes in Blood by Automated counOrdered By: Anuj Rossrow on 11-10-2023 WBC corrected for nucl RBC Auto (Bld) [#/Vol] 7.8 10*3/uL 3.8-11.6 [facility] Lupus Anticoagulant Compon 0 11-10-2023 Dilute Prothrombin Time (dPt) 47.3 Normal 0.0-47.6 [facility] Comment on above: Performed By: #### L UPANTCOAG #### [facility] , dPT Confirm Ratio 1.31 Normal 0.00-1.34 [facility] Comment on above: Performed By: #### L UPANTCOAG #### [facility] , DRVVT Lupus 37.3 Normal 0.0-47.0 [facility] Comment on above: Performed By: #### L UPANTCOAG #### [facility] , Interpretation Comment: Normal . [facility] Comment on above: Result Comment: No l upus anticoagulant was detected. Performed at: - [address] [id number] Chief Green Officer: Eleanor Yousif MD, Phone: [phone] PERFORMED BY: [address] [place] [address] PATHOLOGIST PROTOTYPE CARPENTER VANDA FARRAR M.D. Performed By: #### L UPANTCOAG #### [facility] , PTT-LA 39.5 Normal 0.0-43.5 [facility] Comment on above: Performed By: #### L UPANTCOAG #### [facility] , Thrombin Time 17.1 Normal 0.0-23.0 [facility] Comment on above: Performed By: #### L UPANTCOAG #### [facility] , Lymphocytes Auto (Bld) [#/Vo l]Ordered By: Anuj Diaz on 11-10-2023 Lymphocytes (Bld) [#/Vol] 1.3 10*3/uL 1.00-4.8 [facility] Lymphocytes/100 WBC Auto (Bl d)Ordered By: Anuj Diaz on 11-10-2023 Lymphocytes/100 WBC (Bld) 17.2 % . [facility] MCH Auto (RBC) [Entitic mass ]Ordered By: Anuj Diaz on 11-10-2023 MCH (RBC) [Entitic mass] 31.6 pg 24.7-34.3 [facility] MCHC Auto (RBC) [Mass/Vol]Or dered By: nAuj Diaz on 11-10-2023 MCHC (RBC) [Mass/Vol] 33.7 g/dL 32.0-35.0 [facility] MCV Auto (RBC) [Entitic vol] Ordered By: Anuj Diaz on 11-10-2023 MCV (RBC) [Entitic vol] 93.6 fL 80-100 [facility] Monocytes Auto (Bld) [#/Vol] Ordered By: Anuj Diaz on 11-10-2023 Monocytes (Bld) [#/Vol] 0.9 10*3/uL 0.0-0.8 [facility] Monocytes/100 WBC Auto (Bld) Ordered By: Anuj Diaz on 11-10-2023 Monocytes/100 WBC (Bld) 10.9 % . [facility] Neutrophils Auto (Bld) [#/Vo l]Ordered By: Anuj Diaz on 11-10-2023 Neutrophils (Bld) [#/Vol] 5.3 10*3/uL 1.8-7.7 [facility] Neutrophils/100 WBC Auto (Bl d)Ordered By: Anuj Diaz on 11-10-2023 Neutrophils/100 WBC (Bld) 68.1 % . [facility] Nitrite Test strip Ql (U)Ord ered By: Anuj Diaz on 11-10-2023 Nitrite Ql (U) Negative Negative [facility] No Panel InformationOrdered By: Anuj Diaz on 11-10-2023 Estimated GFR (CKD-EPI) > 60.0 mL/Min [facility] Pharmacy Creatinine Clearance (Chem N/A [facility] Nucleated erythrocytes [Pres ence] in Blood by Automated countOrdered By: Anuj Diaz on 11-10-2023 Nucleated RBC Auto Ql (Bld) 0.1 /100{WBC} 0-0.5 [facility] Platelet mean volume Auto (B ld) [Entitic vol]Ordered By: Anuj Diaz on 11-10-2023 Platelet mean volume (Bld) [Entitic vol] 7.6 fL 6.3-10.7 [facility] Platelets Auto (Bld) [#/Vol] Ordered By: Anuj Diaz on 11-10-2023 Platelets (Bld) [#/Vol] 305 10*3/uL 150-450 [facility] Potassium [Moles/volume] in Serum or PlasmaOrdered By: Anuj Diaz on 11-10-2023 Potassium [Moles/Vol] 3.8 mmol/L 3.5-5.1 [facility] Protein Auto test strip (U) [Mass/Vol]Ordered By: Anuj Diaz on 11-10-2023 Protein (U) [Mass/Vol] Negative Negative [facility] Protein [Mass/volume] in Ser um or PlasmaOrdered By: Anuj Diaz on 11-10-2023 Protein [Mass/Vol] 6.4 g/dL 6.4-8.9 [facility] Prothrombin time (PT)Ordered By: Anuj Diaz on 11-10-2023 PT Coag (PPP) [Time] 11.0 s 9.0-12.9 [facility] Comment on above: A hematocrit value g reater than 55% may lead to inaccurate results in coagulation testing. Patients having hematocrit values >55% require a special collection tube for coagulation studies. Please contact the laboratory at [phone] for redraw instructions. RBC Auto (Bld) [#/Vol]Ordere d By: Anuj Diaz on 11-10-2023 RBC (Bld) [#/Vol] 4.57 10*6/uL 3.60-5.00 [facility] RPR w/rfx to Quant TP Abson 11-10-2023 RPR, Rfx Quant RPR Non-Reactive Normal Non Reactive [facility] Comment on above: Result Comment: Perf ormed at: CB - [facility] [address] [id number] Chief Green Officer: Cooper Hernandez PhD, Phone: [phone] PERFORMED BY: [place] [address] PATHOLOGIST PROTOTYPE CARPENTER VANDA FARRAR M.D. Performed By: #### T HYGLOB AB, CH50, C3, TPO, SANJUANITA, CHROMATIN, C4 #### [facility] , Serum or plasma albumin/glob ulin mass ratioOrdered By: Anuj Diaz on 11-10-2023 Albumin/Globulin [Mass ratio] 1.9 {ratio} [facility] Serum or plasma anion gap de terminationOrdered By: Anuj Diaz on 11-10-2023 Anion gap [Moles/Vol] 10.6 mmol/L 6.0-15.0 [facility] Sodium [Moles/volume] in Ser um or PlasmaOrdered By: Anuj Diaz on 11-10-2023 Sodium [Moles/Vol] 141 mmol/L 136-145 [facility] Specific gravity Auto test s trip (U) [Rel density]Ordered By: Anuj Diaz on 11-10-2023 Specific gravity (U) [Rel density] 1.019 1.001-1.03 0 [facility] Squamous epithelial cells de tection in urine sediment by light microscopyOrdered By: Anuj Diaz on 11-10-2023 Epithelial cells.squamous LM Ql (Urine sed) None seen [HPF] 0-2 [facility] Thyroid Peroxidase Antibodie son 11-10-2023 Thyroid Peroxidase Antibodies <9 Normal 0-34 [facility] Comment on above: Result Comment: Perf ormed at: - [facility] [address] [id number] Chief Green Officer: Cooper Hernandez PhD, Phone: [phone] Performed By: #### T HYGLOB AB, CH50, C3, TPO, SANJUANITA, CHROMATIN, C4 #### [facility] , Thyroid Stimulating Hormoneo n 11-10-2023 TSH Qn 1.34 m[IU]/L Normal 0.45-5.33 [facility] Comment on above: Result Comment: PERF ORMED BY: [address] [place] [id number] PATHOLOGIST PROTOTYPE CARPENTER VANDA FARRAR M.D. Performed By: #### T HYGLOB AB, CH50, C3, TPO, SANJUANITA, CHROMATIN, C4 #### [facility] , Thyrotropin [Units/volume] i n Serum or PlasmaOrdered By: Anuj Diaz on 11-10-2023 TSH Qn 1.34 m[IU]/L 0.45-5.33 [facility] Thyroxine (T4) free [Mass/vo lume] in Serum or PlasmaOrdered By: Anuj Diaz on 11-10-2023 Free T4 [Mass/Vol] 1.21 ng/dL 0.61-1.12 [facility] Urea nitrogen [Mass/volume] in Serum or PlasmaOrdered By: Anuj Diaz on 11-10-2023 Urea nitrogen [Mass/Vol] 15 mg/dL 7-25 [facility] Urine clarity by refractomet ry automatedOrdered By: Anuj Diaz on 11-10-2023 Clarity Refractometry automated (U) Turbid Clear [facility] Urine glucose measurement by automated test strip (mass/volume)Ordered By: Anuj Diaz on 11-10-2023 Glucose Auto test strip (U) [Mass/Vol] Normal mg/dL Normal [facility] Urine hemoglobin detection b y automated test stripOrdered By: Anuj Diaz on 11-10-2023 Hemoglobin Auto test strip Ql (U) Negative Negative [facility] Urine leukocyte esterase det ection by automated test stripOrdered By: Anuj Emily on 11-10-2023 Leukocyte esterase Auto test strip Ql (U) Negative Negative [facility] Urobilinogen Auto test strip (U) [Mass/Vol]Ordered By: Anuj Diaz on 11-10-2023 Urobilinogen (U) [Mass/Vol] Normal mg/dL Normal [facility] WBC Auto (Bld) [#/Vol]Ordere d By: Anuj Diaz on 11-10-2023 WBC (Bld) [#/Vol] 7.8 10*3/uL 3.8-11.6 [facility] pH Auto test strip (U)Ordere d By: Anuj Diaz on 11-10-2023 pH (U) 7.5 [pH] 5.0-9.0 [facility] MG MAMM SCREEN 3D DELORES CADon 04-09-2022 MG MAMM SCREEN 3D DELORES CAD Patient: JENNIFER VALVERDE Exam Date: 04/09/2022 : 1950 Gender:F Ordering : DR KT GATES D.O. Admission #: [id number] Family : Order #: [id number] CLICK HERE TO VIEW EXAM RADIOLOGY REPORT PROCEDURE: MAMMOGRAM SCREENING 3D BILATERAL CAD COMPARISON: MG MAMM SCREEN DELORES W CAD, 03/04/2020. MG MAMM SCREEN 3D DELORES CAD, 03/09/2021. INDICATIONS: Screening mammography Calculator Name NCI Breast Cancer Risk Assessment Tool 5 Year Breast Cancer Risk 4.10% Lifetime Breast Cancer Risk 10.40% Personal Breast Cancer No Personal Ovarian Cancer No Treatments None Family Cancers Sister with breast cancer at age 48; Aunt-maternal with breast cancer at age 65; Cousin-maternal with breast cancer at age 40; Aunt-maternal with ovarian cancer at age 50; Father with colon cancer at age 70; Mother with esophageal cancer at age 87; Grandmother-paternal with unknown cancer at age 58. LOCATION: [facility] BREAST COMPOSITION: Scattered areas fibroglandular density. FINDINGS: DIAGNOSTIC CATEGORY 1--NEGATIVE. NO CHANGE FROM COMPARISON ASSESSMENT. Scattered benign-appearing calcifications are present. Scattered benign-appearing lymph nodes are present. RIGHT BREAST: No significant suspicious finding. LEFT BREAST: No significant suspicious finding. RECOMMENDATIONS: ROUTINE MAMMOGRAM AND CLINICAL EVALUATION IN 12 MONTHS. PLEASE NOTE: A NORMAL MAMMOGRAM DOES NOT EXCLUDE THE POSSIBILITY OF BREAST CANCER. A CLINICALLY SUSPICIOUS PALPABLE LUMP SHOULD BE BIOPSIED. Dictated by: Giselle Hathaway MD on 04/09/2022 at 11:11 Approved by: Giselle Hathaway MD on 04/09/2022 at 11:13 Normal [facility] Encounters Encounter Date Encounter Type Care Provider Facility Start: 06-05-2024 End: 06-05-2024 ambulatory [facility] Start: 11-10-2023 End: 11-10-2023 ambulatory Kt Gates Facility:[facility] Start: 11-10-2023 End: 11-10-2023 ambulatory MD Anuj Diaz Work Phone: [facility] Work Phone: Start: 11-10-2023 End: 11-10-2023 Patient encounter procedure MD Anuj Diaz Work Phone: [facility] [address] Work Phone: Start: 04-09-2022 End: 04-10-[address] KT GATES Facility:[facility] Plan of Treatment Date Care Activity Detail Author Start: 11-10-2023 Hemolytic complement CH50 level [facility] Start: 11-10-2023 [facility] Payers Date Payer Category Payer Self-pay 1960 Medicare [id number] 1960 Unknown [id number] 1950 Unknown [id number] Unknown [id number] Social History Date Type Detail Facility Tobacco smoking stat [facility] Unknown if ever smoked [facility] Work Phone: Start: 1950 Sex Assigned At Female F [facility] Progress note 06-05-2024 Note Date & Type Note Facility 06-05-2024 Note [facility] Consul t Note Reason for Consultation: Abn ECHO 06/05/24 Patient here for 1 year follow up hypertension and mild MR. Had labs in Jan, and echo in Feb 2024. Says once in awhile she gets an ache in her chest, lasting a couple minutes at a time. 05/31/23 Patient here for 1 year follow up hypertension and tachycardia. She had echo and labs at PCP's office since last visit which was unchanged.. She denies chest pain, SOB, and palpitations. Taking Bystolic 3 times a week due to the high cost. ECHO 03/02/23 Prior HPI: Jennifer Valverde is a 73 y.o. year old with past medical history of HTN was recentl seen by her PCP. She had an ECHO which reported abnormal findings and so she wanted me to review them. She takes Bystolic 4 times a week for hypertension and tachycardia. Denies chest pain, SOB, and palpitations. She is active with no chest pain shortness of breath. NYHA class I PMH: Past Medical History: Diagnosis Date Heart valve disease Hypertension Tachycardia PSH: Past Surgical History: Procedure Laterality Date FOOT SURGERY TONSILLECTOMY SH: Social Determinants of Health Tobacco Use: Low Risk (06/05/2024) Patient History Smoking Tobacco Use: Never Smokeless Tobacco Use: Never Passive Exposure: Not on file Alcohol Use: Not on file Financial Resource Strain: Not on file Food Insecurity: Not on file Transportation Needs: Not on file Physical Activity: Not on file Stress: Not on file Social Connections: Not on file Intimate Partner Violence: Unknown (08/18/2023) [place] Safety & Environment Fear of Current or Ex-Partner: Not on file Emotionally Abused: Not on file Physically Abused: Not on file Sexually Abused: Not on file Physically or Sexually Abused: Not on file Depression: Not on file Housing Stability: Not on file Utilities: Not on file Health Literacy: Not on file Meds: Current Outpatient Medications on File Prior to Visit Medication Sig Dispense Refill ezetimibe (Zetia) 10 mg tablet Take 5 mg by mouth at bedtime. famotidine (Pepcid) 40 mg tablet nebivolol (Bystolic) 5 mg tablet Take 5 mg by mouth 4 (four) times a week. omeprazole-sodium bicarbonate (Zegerid) 40-1.1 mg-gram capsule Take 1 capsule by mouth before breakfast. Do not crush, chew, or split. solifenacin (VESIcare) 10 mg tablet Take 5 mg by mouth in the morning. Swallow tablet whole; do not crush, chew, or split. No current facility-administered medications on file prior to visit. ROS: Review of Systems Cardiovascular: Positive for chest pain. Neurological: Positive for vertigo. All other systems reviewed and are negative. Physical Exam: Constitutional General Appearance: well-nourished, well-developed, appears stated age Level of Distress: comfortable Psychiatric Mental Status: alert, normal affect Orientation: oriented to time, place, and person Insight: good judgement Eyes Lids and Conjunctivae: non-injected, no xanthelasma ENMT Ears: no lesions on external ear Nose: no lesions on external nose Oropharynx: no cyanosis, no pallor Neck Neck: supple, trachea midline Carotid Arteries: bilateral normal upstroke, no bruits Jugular Veins: normal jugular venous pressure Thyroid: not enlarged Lungs Respiratory Effort: unlabored Chest Exam: normal curvature, no thoracic deformity Auscultation: clear, no wheezing, no rales, no rhonchi Cardiovascular Rate And Rhythm: regular Heart Sounds: normal S1, normal s2, no gallop Systolic Murmur: not heard Diastolic Murmur: not heard Extremities: no cyanosis, no edema, no peripheral signs of emboli Peripheral Pulses Radial Pulse: normal Abdomen Inspection and Palpation: soft, non distended, no bruit, non tender Musculoskeletal Inspection: no joint swelling Neurologic Gait: normal gait Skin Inspection and Palpation: warm and dry Nails: no clubbing Labs: @LABRESULTS@ EKG: No results found for this or any previous visit (from the past 4464 hour(s)). PCP office interpretation: SR Echo: 03/06/24 Echocardiogram from primary care doctor's office and interpretation (by PCP): normal EF mild MR and mild TR. Stress test: Coronary angiogram: @CATH@ Diagnostic Imaging: No images are attached to the encounter. Assessment and Plan: - Mild MR: I reviewed the echo findings with the patient and reassured her that ejection fraction was normal as per the report and mild valve regurgitation is of no consequence. focus should be on dose factor modification - HTN: Asked to keep BP log. Based on that will recc daily anti-HTN and possibly substitute Nebivolol. Zacarias Hilton MD Cardiac Electrophysiology [facility] Evaluation note Note Date & Type Note Facility Evaluation note No assessment information availa yuni [facility] Work Phone: Summary Purpose Family History No Family History Records FoundNo Family History Records FoundNo Family History Records Found Advance Directives No Advanced Directives Records FoundNo Advanced Directives Records FoundNo Advanced Directives Records Found Additional Source Comments INFORMATION SOURCE (unrecogn ized section and content) DATE CREATED AUTHOR 04/19/2022 [facility] DATE CREATED AUTHOR AUTHOR'S ORGANIZ ATION 11/20/2023 [facility] DATE CREATED AUTHOR AUTHOR'S ORGANIZ ATION 06/08/2024 [facility] Teams (unrecognized sec tion and content) Team Status: Inactive Member Role Status Dates Anuj Diaz MD Attending Provider Active St art: November 10, 2023 End: November 10, 2023 Goals (unrecognized section and content) Goals may be documented in a n alternate section FOR RECORDS PERTAINING TO PATIENTS WHO ARE OR HAVE BEEN ENROLLED IN A CHEMICAL DEPENDENCY/SUBSTANCEABUSE PROGRAM, SOME INFORMATION MAY BE OMITTED. This clinical summary was aggregated from multiple sources. Caution should be exercised in using it in the provision of clinical care. This summary normalizes information from multiple sources, and as a consequence, information in this document may materially change the coding, format and clinical context of patient data. In addition, data may be omitted in some cases. CLINICAL DECISIONS SHOULD BE BASED ON THE PRIMARY CLINICAL RECORDS. [employer] provides no warranty or guarantee of the accuracy or completeness of information in this document.
== END 2024-06-25 12:43 | disposition home or self-care (01) ==
LOC: MAMMO 12:42
PROVIDERS: Visit Provider Internal Medicine
DX: Z12.31 Encounter for screening mammogram for malignant neoplasm of breast (principal); Z80.3 Family history of malignant neoplasm of breast; Z80.41 Family history of malignant neoplasm of ovary; Z80.0 Family history of malignant neoplasm of digestive organs; Z80.8 Family history of malignant neoplasm of other organs or systems
CPT/HCPCS: 77063; 77067

== ENCOUNTER 2024-07-04 09:17 | Outpatient (OUT) | payer MEDICARE, OTHER, SELFPAY | END 2024-07-04 09:18 | disposition home or self-care (01) | LOC: CARD 09:17 | PROVIDERS: Visit Provider Internal Medicine Cardiovascular Disease | DX: R07.89 Other chest pain (principal) | CPT/HCPCS: 93017 ==

== ENCOUNTER 2024-12-28 22:26 | Emergency (ER) | payer MEDICARE, OTHER, SELFPAY ==
[2024-12-28] VITALS (10 sets, daily range): BP systolic 126–164; BP diastolic 66–79; PULSE 63–73; TEMP 36.9; O2SAT 96–98; BMI 23.8
--- OUTSIDE RECORDS SUMMARY | 2024-12-28 22:35 | XMS_ITS | CCD ---
Author Organization [facility] Care Team Providers Care Liquid Fertilizer Servicer Name Role Phone YAJAIRA, DR PATEL Admitting Unavailable YAJAIRA, DR PATEL Attending Unavailable YAJAIRA, DR PATEL Primary Care Unavailable YAJAIRA, DR PATEL Consulting Unavailable WEST, DR GISELLE Kirby Consulting Unavailable MD Anuj Diaz Attending Provider [phone] [facility] Primary [facility] Unavailable Anuj Diaz Attending Unavailable Anuj Diaz Admitting Unavailable ZACARIAS HILTON Attending Unavailable ZACARIAS HILTON Attending Unavailable Allergies Allergy Classification Reported Allergen(s) Allergy Type Date of Onset Reaction(s) Facility (1 source) Azithromycin Drug Allergy 4 [facility] Repository (2 sources) Bee pollen; Translations: [BEE POLLEN] Drug allergy (disorder) 4 [facility] Repository (2 sources) Codeine; Translations: [CODEINE] Drug Allergy 1 [facility] Repository (1 source) Iodine (And Iodine Containting Drugs) Drug allergy (disorder) 4 [facility] Repository (1 source) Sulfonamides (Antibiotic) Drug allergy (disorder) 4 [facility] Repository (1 source) Contrast media; Translations: [DYE] Propensity to adverse reactions to drug (disorder) 2 [facility] Repository (1 source) levoFLOXacin; Translations: [LEVOFLOXACIN] Drug Allergy 2 [facility] Repository (1 source) Sulfonamides (Antibiotic); Translations: [SULFA (SULFONAMIDE ANTIBIOTICS)] Propensity to adverse reactions to drug (disorder) 1 [facility] Repository Problems Problem Classification Problem Date Documented [...] Test Name Value Interpretation Reference Range Facility Office Visiton 07-10-2024 Follow-up visit [id number] Lucy Valverde S 1950 Provider Department Center 07/10/2024 ZACARIAS GRAYSON Family History Problem Relation Age of Onset Supraventricular tachycardia Mother's Sister Stroke Mother's Sister Other Maternal Grandmother Stroke Paternal Grandfather Family Status - Relation Status Age at Mother's Sister Maternal Grandmother Paternal Grandfather Level of Service:33759 [place] OFFICE/OUTPATIENT ESTABLISHED MOD MDM 30 MIN Normal [facility] Orders Onlyon 07-10-2024 Orders Only [id number] Lucy Valverde S 1950 Provider Department Center 07/10/2024 JUAN LUIS MCLEAN Family History Problem Relation Age of Onset Supraventricular tachycardia Mother's Sister Stroke Mother's Sister Other Maternal Grandmother Stroke Paternal Grandfather Family Status - Relation Status Age at Mother's Sister Maternal Grandmother Paternal Grandfather Normal [facility] Office Visiton 06-05-2024 Follow-up visit [id number] Lucy Valverde S 1950 F Date Provider Department Center 06/05/2024 ZACARIAS GRAYSON Family History Problem Relation Age of Onset Supraventricular tachycardia Mother's Sister Stroke Mother's Sister Other Maternal Grandmother Stroke Paternal Grandfather Family Status - Relation Status Age at Mother's Sister Maternal Grandmother Paternal Grandfather Level of Service:05795 [place] OFFICE/OUTPATIENT ESTABLISHED LOW MDM 20 MIN Normal [facility] Orders Onlyon 06-05-2024 Orders Only [id number] Lucy Valverde S 1950 F Date Provider Department Center 06/05/2024 JUAN LUIS MCLEAN YOGI Campuzano Family History Problem Relation Age of Onset Supraventricular tachycardia Mother's Sister Stroke Mother's Sister Other Maternal Grandmother Stroke Paternal Grandfather Family Status - Relation Status Age at Mother's Sister Maternal Grandmother Paternal Grandfather Normal [facility] SANJUANITA Antinuclear Antibodieson 11-10-2023 Antinuclear Abs, IFA Negative Normal . [facility] Comment on above: Result Comment: Nega tive <1:80 Borderline 1:80 Positive >1:80 ICAP nomenclature: AC-0 For more information about Hep-2 cell patterns use ANApatterns.org, the official website for the International Consensus on Antinuclear Antibody (SANJUANITA) Patterns (ICAP). Performed at: - [facility] [place] [id number] Gift Shop Manager: Cooper Hernandez PhD, Phone: [phone] Performed By: #### T HYGLOB AB, CH50, C3, TPO, SANJUANITA, CHROMATIN, C4 #### [facility] , Activated partial thrombopla stin time (aPTT) in platelet poor plasma by coagulation aOrdered By: Anuj Diaz on 11-10-2023 aPTT Coag (PPP) [Time] 39.3 s 25.1-36.5 [facility] Comment on above: A hematocrit value g reater than 55% may lead to inaccurate results in coagulation testing. Patients having hematocrit values >55% require a special collection tube for coagulation studies. Please contact the laboratory at [phone] for redraw instructions. Alanine aminotransferase [En zymatic activity/volume] in Serum or PlasmaOrdered By: Anuj Diaz on 11-10-2023 ALT [Catalytic activity/Vol] 25 U/L 7-52 [facility] Albumin [Mass/volume] in Ser um or Plasma by Bromocresol green (BCG) dye binding methoOrdered By: Anuj Diaz on 11-10-2023 Albumin BCG dye [Mass/Vol] 4.2 g/dL 3.5-5.7 [facility] Aldolaseon 11-10-2023 Aldolase 4.3 U/L Normal 3.3-10.3 [facility] Comment on above: Result Comment: Perf ormed at: [facility] [address] [id number] Gift Shop Manager: Cooper Hernandez PhD, Phone: [phone] PERFORMED BY: [place] [address] PATHOLOGIST CLAY CASTER VANDA FARRAR M.D. Performed By: #### T HYGLOB AB, CH50, C3, TPO, SANJUANITA, CHROMATIN, C4 #### [facility] , Alkaline phosphatase [Enzyma tic activity/volume] in Serum or PlasmaOrdered By: Anuj Diaz on 11-10-2023 ALP [Catalytic activity/Vol] 66 U/L 34-104 [facility] Antithyroglobulin Abon 11-09 Antithyroglobulin Ab <1.0 Normal 0.0-0.9 [facility] Comment on above: Result Comment: Thyr oglobulin Antibody measured by [employer] Methodology It should be noted that the presence of thyroglobulin antibodies may not be pathogenic nor diagnostic, especially at very low levels. The assay accounting clerk has found that four percent of individuals without evidence of thyroid disease or autoimmunity will have positive TgAb levels up to 4 IU/mL. Performed at: [facility] [address] [place] [id number] Gift Shop Manager: Cooper Hernandez PhD, Phone: [phone] Performed By: #### T HYGLOB AB, CH50, C3, TPO, SANJUANITA, CHROMATIN, C4 #### [facility] , Aspartate aminotransferase [ Enzymatic activity/volume] in Serum or PlasmaOrdered By: Anuj Diaz on 11-10-2023 AST [Catalytic activity/Vol] 22 U/L 13-39 [facility] Bacteria [Presence] in Urine by AutomatedOrdered By: Anuj Diaz on 11-10-2023 Bacteria Auto Ql (U) None seen [HPF] None Seen [facility] Basophils Auto (Bld) [#/Vol] Ordered By: Anuj Diaz on 11-10-2023 Basophils (Bld) [#/Vol] 0.1 10*3/uL 0.0-0.2 [facility] Basophils/100 WBC Auto (Bld) Ordered By: Anuj Diaz on 11-10-2023 Basophils/100 WBC (Bld) 1.0 % . [facility] Bilirubin Test strip Ql (U)O rdered By: Anuj Diaz on 11-10-2023 Bilirubin Ql (U) Negative Negative [facility] Bilirubin.total [Mass/volume ] in Serum or PlasmaOrdered By: Anuj Diaz on 11-10-2023 Bilirubin [Mass/Vol] 1.1 mg/dL 0.3-1.0 [facility] C reactive protein [Mass/vol ume] in Serum or PlasmaOrdered By: Anuj Diaz on 11-10-2023 CRP [Mass/Vol] < 0.5 mg/dL 0.0-0.5 [facility] C-Reactive Proteinon 024 CRP [Mass/Vol] mg/L Normal 0.0-0.5 [facility] Comment on above: Performed By: #### T HYGLOB AB, CH50, C3, TPO, SANJUANITA, CHROMATIN, C4 #### [facility] , Calcium [Mass/volume] in Ser um or PlasmaOrdered By: Anuj Diaz on 11-10-2023 Calcium [Mass/Vol] 9.3 mg/dL 8.6-10.3 [facility] Carbon dioxide, total [Moles /volume] in Serum or PlasmaOrdered By: Anuj Diaz on 11-10-2023 CO2 [Moles/Vol] 33.2 mmol/L 21.0-31.0 [facility] Chloride [Moles/volume] in S emile or PlasmaOrdered By: Anuj Diaz on 11-10-2023 Chloride [Moles/Vol] 101 mmol/L 98-107 [facility] Chromatin Antibodyon 024 Chromatin Antibody <0.2 Normal 0.0-0.9 [facility] Comment on above: Result Comment: Perf ormed at: - [facility] [address] [id number] Gift Shop Manager: Cooper Hernandez PhD, Phone: [phone] PERFORMED BY: [place] [id number] PATHOLOGIST CLAY CASTER VANDA FARRAR M.D. Performed By: #### T HYGLOB AB, CH50, C3, TPO, SANJUANITA, CHROMATIN, C4 #### [facility] , Coagulation Profileon 2023 aPTT Coag (Bld) [Time] 39.3 s High 25.1-36.5 [facility] Comment on above: Result Comment: A he matocrit value greater than 55% may lead to inaccurate results in coagulation testing. Patients having hematocrit values >55% require a special collection tube for coagulation studies. Please contact the laboratory at [phone] for redraw instructions. PERFORMED BY: [place] [address] PATHOLOGIST CLAY CASTER VANDA FARRAR M.D. Performed By: #### T HYGLOB AB, CH50, C3, TPO, SANJUANITA, CHROMATIN, C4 #### [facility] , INR Coag (PPP) [Relative time] 0.9 {INR} Normal [facility] Comment on above: Result Comment: [...] 11.0 s Normal 9.0-12.9 [facility] Comment on above: Result Comment: A he matocrit value greater than 55% may lead to inaccurate results in coagulation testing. Patients having hematocrit values >55% require a special collection tube for coagulation studies. Please contact the laboratory at [phone] for redraw instructions. Performed By: #### T HYGLOB AB, CH50, C3, TPO, SANJUANITA, CHROMATIN, C4 #### [facility] , Color Auto (U)Ordered By: Rosalino Diaz on 11-10-2023 Color (U) Yellow Yellow [facility] Complement C3on 11-10-2023 Complement C3 157 mg/dL Normal 82-167 [facility] Comment on above: Result Comment: Perf ormed at: - [facility] [address] [id number] Gift Shop Manager: Cooper Hernandez PhD, Phone: [phone] Performed By: #### T HYGLOB AB, CH50, C3, TPO, SANJUANITA, CHROMATIN, C4 #### [facility] , Complement C4on 11-10-2023 Complement C4 29 mg/dL Normal 12-38 [facility] Comment on above: Performed By: #### T HYGLOB AB, CH50, C3, TPO, SAJNUANITA, CHROMATIN, C4 #### [facility] , Complement Total (CH50)on Complement Total (CH50) >60 Normal >41 [facility] Comment on above: Result Comment: [...] determine out of range values. Performed at: [address] [id number] Gift Shop Manager: Cooper Hernandez PhD, Phone: [phone] PERFORMED BY: [place] [address] [place] [address] PATHOLOGIST CLAY CASTER VANDA FARRAR M.D. Performed By: #### T HYGLOB AB, CH50, C3, TPO, SANJUANITA, CHROMATIN, C4 #### [facility] , Complete Blood Count Auto Di ffon 11-10-2023 Basophils (Bld) [#/Vol] 0.1 10*3/uL Normal 0.0-0.2 [facility] Comment on above: Performed By: #### T HYGLOB AB, CH50, C3, TPO, SANJUANITA, CHROMATIN, C4 #### [facility] , Basophils/100 WBC (Bld) 1.0 % Normal . [facility] Comment on above: Performed By: #### T HYGLOB AB, CH50, C3, TPO, SANJUANITA, CHROMATIN, C4 #### [facility] , Eosinophils (Bld) [#/Vol] 0.2 10*3/uL Normal 0.0-0.45 [facility] Comment on above: Performed By: #### T HYGLOB AB, CH50, C3, TPO, SANJUANITA, CHROMATIN, C4 #### [facility] , Eosinophils/100 WBC (Bld) 2.8 % Normal . [facility] Comment on above: Performed By: #### T HYGLOB AB, CH50, C3, TPO, SANJUANITA, CHROMATIN, C4 #### [facility] , Erythrocyte distribution width (RBC) [Ratio] 15.9 % High 11.9-15.3 [facility] Comment on above: Performed By: #### T HYGLOB AB, CH50, C3, TPO, SANJUANITA, CHROMATIN, C4 #### [facility] , Hematocrit (Bld) [Volume fraction] 42.8 % Normal 34.0-46.4 [facility] Comment on above: Performed By: #### T HYGLOB AB, CH50, C3, TPO, SANJUANITA, CHROMATIN, C4 #### [facility] , Hemoglobin (Bld) [Mass/Vol] 14.4 g/dL Normal 11.8-15.4 [facility] Comment on above: Performed By: #### T HYGLOB AB, CH50, C3, TPO, SANJUANITA, CHROMATIN, C4 #### [facility] , Lymphocytes (Bld) [#/Vol] 1.3 10*3/uL Normal 1.00-4.8 [facility] Comment on above: Performed By: #### T HYGLOB AB, CH50, C3, TPO, SANJUANITA, CHROMATIN, C4 #### [facility] , Lymphocytes/100 WBC (Bld) 17.2 % Normal . [facility] Comment on above: Performed By: #### T HYGLOB AB, CH50, C3, TPO, SANJUANITA, CHROMATIN, C4 #### [facility] , MCH (RBC) [Entitic mass] 31.6 pg Normal 24.7-34.3 [facility] Comment on above: Performed By: #### T HYGLOB AB, CH50, C3, TPO, SANJUANITA, CHROMATIN, C4 #### [facility] , MCV (RBC) [Entitic vol] 93.6 fL Normal 80-100 [facility] Comment on above: Performed By: #### T HYGLOB AB, CH50, C3, TPO, SANJUANITA, CHROMATIN, C4 #### [facility] , Mean Corpuscular HGB Conc 33.7 g/dL Normal 32.0-35.0 [facility] Comment on above: Performed By: #### T HYGLOB AB, CH50, C3, TPO, SANJUANITA, CHROMATIN, C4 #### [facility] , Monocytes (Bld) [#/Vol] 0.9 10*3/uL High 0.0-0.8 [facility] Comment on above: Performed By: #### T HYGLOB AB, CH50, C3, TPO, SANJUANITA, CHROMATIN, C4 #### [facility] , Monocytes/100 WBC (Bld) 10.9 % Normal . [facility] Comment on above: Performed By: #### T HYGLOB AB, CH50, C3, TPO, SANJUANITA, CHROMATIN, C4 #### [facility] , Neutrophils (Bld) [#/Vol] 5.3 10*3/uL Normal 1.8-7.7 [facility] Comment on above: Performed By: #### T HYGLOB AB, CH50, C3, TPO, SANJUANITA, CHROMATIN, C4 #### [facility] , Neutrophils/100 WBC (Bld) 68.1 % Normal . [facility] Comment on above: Performed By: #### T HYGLOB AB, CH50, C3, TPO, SANJUANITA, CHROMATIN, C4 #### [facility] , NRBC% 0.1 /100{WBC} Normal 0-0.5 [facility] Comment on above: Performed By: #### T HYGLOB AB, CH50, C3, TPO, SANJUANITA, CHROMATIN, C4 #### [facility] , Platelet mean volume (Bld) [Entitic vol] 7.6 fL Normal 6.3-10.7 [facility] Comment on above: Performed By: #### T HYGLOB AB, CH50, C3, TPO, SANJUANITA, CHROMATIN, C4 #### [facility] , Platelets (Bld) [#/Vol] 305 10*3/uL Normal 150-450 [facility] Comment on above: Performed By: #### T HYGLOB AB, CH50, C3, TPO, SANJUANITA, CHROMATIN, C4 #### [facility] , RBC (Bld) [#/Vol] 4.57 10*6/uL Normal 3.60-5.00 [facility] Comment on above: Performed By: #### T HYGLOB AB, CH50, C3, TPO, SANJUANITA, CHROMATIN, C4 #### [facility] , WBC (Bld) [#/Vol] 7.8 10*3/uL Normal 3.8-11.6 [facility] Comment on above: Performed By: #### T HYGLOB AB, CH50, C3, TPO, SANJUANITA, CHROMATIN, C4 #### [facility] , Comprehensive Metabolic Pane alia 11-10-2023 Albumin [Mass/Vol] 4.2 g/dL Normal 3.5-5.7 [facility] Comment on above: Performed By: #### T HYGLOB AB, CH50, C3, TPO, SANJUANITA, CHROMATIN, C4 #### [facility] , Albumin/Globulin [Mass ratio] 1.9 {ratio} Normal [facility] Comment on above: Performed By: #### T HYGLOB AB, CH50, C3, TPO, SANJUANITA, CHROMATIN, C4 #### [facility] , ALP [Catalytic activity/Vol] 66 U/L Normal 34-104 [facility] Comment on above: Performed By: #### T HYGLOB AB, CH50, C3, TPO, SANJUANITA, CHROMATIN, C4 #### [facility] , ALT [Catalytic activity/Vol] 25 U/L Normal 7-52 [facility] Comment on above: Performed By: #### T HYGLOB AB, CH50, C3, TPO, SANJUANITA, CHROMATIN, C4 #### [facility] , Anion gap [Moles/Vol] 10.6 mmol/L Normal 6.0-15.0 [facility] Comment on above: Performed By: #### T HYGLOB AB, CH50, C3, TPO, SANJUANITA, CHROMATIN, C4 #### [facility] , AST [Catalytic activity/Vol] 22 U/L Normal 13-39 [facility] Comment on above: Performed By: #### T HYGLOB AB, CH50, C3, TPO, SANJUANITA, CHROMATIN, C4 #### [facility] , Bilirubin [Mass/Vol] 1.1 mg/dL High 0.3-1.0 [facility] Comment on above: Performed By: #### T HYGLOB AB, CH50, C3, TPO, SANJUANITA, CHROMATIN, C4 #### [facility] , Calcium [Mass/Vol] 9.3 mg/dL Normal 8.6-10.3 [facility] Comment on above: Performed By: #### T HYGLOB AB, CH50, C3, TPO, SANJUANITA, CHROMATIN, C4 #### [facility] , Chloride [Moles/Vol] 101 mmol/L Normal 98-107 [facility] Comment on above: Performed By: #### T HYGLOB AB, CH50, C3, TPO, SANJUANITA, CHROMATIN, C4 #### [facility] , CO2 [Moles/Vol] 33.2 mmol/L High 21.0-31.0 [facility] Comment on above: Performed By: #### T HYGLOB AB, CH50, C3, TPO, SANJUANITA, CHROMATIN, C4 #### [facility] , Creatinine [Mass/Vol] 0.84 mg/dL Normal 0.60-1.20 [facility] Comment on above: Performed By: #### T HYGLOB AB, CH50, C3, TPO, SANJUANITA, CHROMATIN, C4 #### [facility] , GFR/1.73 sq M.predicted MDRD (S/P/Bld) [Vol rate/Area] mL/min/{1.73_m2} Normal [facility] Comment on above: Performed By: #### T HYGLOB AB, CH50, C3, TPO, SANJUANITA, CHROMATIN, C4 #### [facility] , Globulin (S) [Mass/Vol] 2.2 g/dL Normal [facility] Comment on above: Performed By: #### T HYGLOB AB, CH50, C3, TPO, SANJUANITA, CHROMATIN, C4 #### [facility] , Glucose [Mass/Vol] 93 mg/dL Normal 70-100 [facility] Comment on above: Result Comment: [place] Glucose Reference Range is dependent on time and content of last meal. Glucose of more than 200 mg/dL in a nonstressed, ambulatory subject supports the diagnosis of Diabetes Mellitus. ADA recommended reference range Performed By: #### T HYGLOB AB, CH50, C3, TPO, SANJUANITA, CHROMATIN, C4 #### [facility] , Potassium [Moles/Vol] 3.8 mmol/L Normal 3.5-5.1 [facility] Comment on above: Performed By: #### T HYGLOB AB, CH50, C3, TPO, SANJUANITA, CHROMATIN, C4 #### [facility] , Protein [Mass/Vol] 6.4 g/dL Normal 6.4-8.9 [facility] Comment on above: Performed By: #### T HYGLOB AB, CH50, C3, TPO, SANJUANITA, CHROMATIN, C4 #### [facility] , Sodium [Moles/Vol] 141 mmol/L Normal 136-145 [facility] Comment on above: Performed By: #### T HYGLOB AB, CH50, C3, TPO, SANJUANITA, CHROMATIN, C4 #### [facility] , Urea nitrogen [Mass/Vol] 15 mg/dL Normal 7-25 [facility] Comment on above: Performed By: #### T HYGLOB AB, CH50, C3, TPO, SANJUANITA, CHROMATIN, C4 #### [facility] , Creatine Kinaseon 11-10-2023 CK [Catalytic activity/Vol] 72 U/L Normal 30-223 [facility] Comment on above: Result Comment: PERF ORMED BY: [place] [address] PATHOLOGIST CLAY CASTER VANDA FARRAR M.D. Performed By: #### P P, CRP, ADDONUAPLUS, CK, ESR, TSH3, CBC, T4F, CMP #### [address] #### ALDOLASE, RPR W RFX #### [facility] , Creatine kinase [Enzymatic a ctivity/volume] in Serum or PlasmaOrdered By: Anuj Diaz on 11-10-2023 CK [Catalytic activity/Vol] 72 U/L 30-223 [facility] Creatinine [Mass/volume] in Serum or PlasmaOrdered By: Anuj Diaz on 11-10-2023 Creatinine [Mass/Vol] 0.84 mg/dL 0.60-1.20 [facility] Dipstick and Microscopicon 0 11-10-2023 Appearance (U) Turbid Critically abnormal Clear [facility] Comment on above: Order Comment: Name Collection Type:: Clean-Voided Midstream Performed By: #### P P, CRP, ADDONUAPLUS, CK, ESR, TSH3, CBC, T4F, CMP #### [address] #### ALDOLASE, RPR W RFX #### [facility] , Bacteria,Urine None Seen Normal None Seen [facility] Comment on above: Order Comment: Name Collection Type:: Clean-Voided Midstream Performed By: #### P P, CRP, ADDONUAPLUS, CK, ESR, TSH3, CBC, T4F, CMP #### [address] #### ALDOLASE, RPR W RFX #### [facility] , Bilirubin,Urine Negative Normal Negative [facility] Comment on above: Order Comment: Name Collection Type:: Clean-Voided Midstream Performed By: #### P P, CRP, ADDONUAPLUS, CK, ESR, TSH3, CBC, T4F, CMP #### [facility] [address] [place] [address] #### ALDOLASE, RPR W RFX #### [facility] , Color (U) Yellow Normal Yellow [facility] Comment on above: Order Comment: Name Collection Type:: Clean-Voided Midstream Performed By: #### P P, CRP, ADDONUAPLUS, CK, ESR, TSH3, CBC, T4F, CMP #### [address] #### ALDOLASE, RPR W RFX #### [facility] , Glucose Ql (U) Normal Normal Normal [facility] Comment on above: Order Comment: Name Collection Type:: Clean-Voided Midstream Performed By: #### P P, CRP, ADDONUAPLUS, CK, ESR, TSH3, CBC, T4F, CMP #### [address] #### ALDOLASE, RPR W RFX #### [facility] , Hyaline Casts,Urine None Seen Normal 0-8 [facility] Comment on above: Order Comment: Name Collection Type:: Clean-Voided Midstream Result Comment: PERF ORMED BY: [place] [address] PATHOLOGIST CLAY CASTER VANDA FARRAR M.D. Performed By: #### P P, CRP, ADDONUAPLUS, CK, ESR, TSH3, CBC, T4F, CMP #### [address] #### ALDOLASE, RPR W RFX #### [facility] , Ketones Ql (U) Negative Normal Negative [facility] Comment on above: Order Comment: Name Collection Type:: Clean-Voided Midstream Performed By: #### P P, CRP, ADDONUAPLUS, CK, ESR, TSH3, CBC, T4F, CMP #### [address] #### ALDOLASE, RPR W RFX #### [facility] , Leukocyte esterase Test strip Ql (U) Negative Normal Negative [facility] Comment on above: Order Comment: Name Collection Type:: Clean-Voided Midstream Performed By: #### P P, CRP, ADDONUAPLUS, CK, ESR, TSH3, CBC, T4F, CMP #### [address] #### ALDOLASE, RPR W RFX #### [facility] , Nitrite,Urine Negative Normal Negative [facility] Comment on above: Order Comment: Name Collection Type:: Clean-Voided Midstream Performed By: #### P P, CRP, ADDONUAPLUS, CK, ESR, TSH3, CBC, T4F, CMP #### [address] #### ALDOLASE, RPR W RFX #### [facility] , Occult Blood,Urine Negative Normal Negative [facility] Comment on above: Order Comment: Name Collection Type:: Clean-Voided Midstream Performed By: #### P P, CRP, ADDONUAPLUS, CK, ESR, TSH3, CBC, T4F, CMP #### [address] #### ALDOLASE, RPR W RFX #### [facility] , pH (U) 7.5 [pH] Normal 5.0-9.0 [facility] Comment on above: Order Comment: Name Collection Type:: Clean-Voided Midstream Performed By: #### P P, CRP, ADDONUAPLUS, CK, ESR, TSH3, CBC, T4F, CMP #### [address] #### ALDOLASE, RPR W RFX #### [facility] , Protein,Urine Negative Normal Negative [facility] Comment on above: Order Comment: Name Collection Type:: Clean-Voided Midstream Performed By: #### P P, CRP, ADDONUAPLUS, CK, ESR, TSH3, CBC, T4F, CMP #### [address] #### ALDOLASE, RPR W RFX #### [facility] , RBC LM.HPF (Urine sed) [#/Area] 0 /[HPF] Normal 0-4 [facility] Comment on above: Order Comment: Name Collection Type:: Clean-Voided Midstream Performed By: #### P P, CRP, ADDONUAPLUS, CK, ESR, TSH3, CBC, T4F, CMP #### [address] #### ALDOLASE, RPR W RFX #### [facility] , Specificy [place],Urine 1.019 Normal 1.001-1.03 0 [facility] Comment on above: Order Comment: Name Collection Type:: Clean-Voided Midstream Performed By: #### P P, CRP, ADDONUAPLUS, CK, ESR, TSH3, CBC, T4F, CMP #### [address] #### ALDOLASE, RPR W RFX #### [facility] , Squamous Epithelial Cell,Urine None Seen Normal 0-2 [facility] Comment on above: Order Comment: Name Collection Type:: Clean-Voided Midstream Performed By: #### P P, CRP, ADDONUAPLUS, CK, ESR, TSH3, CBC, T4F, CMP #### [address] #### ALDOLASE, RPR W RFX #### [facility] , Urobilinogen,Urine Normal Normal Normal [facility] Comment on above: Order Comment: Name Collection Type:: Clean-Voided Midstream Performed By: #### P P, CRP, ADDONUAPLUS, CK, ESR, TSH3, CBC, T4F, CMP #### [address] #### ALDOLASE, RPR W RFX #### [facility] , WBC LM.HPF (Urine sed) [#/Area] 0 /[HPF] Normal 0-4 [facility] Comment on above: Order Comment: Name Collection Type:: Clean-Voided Midstream Performed By: #### P P, CRP, ADDONUAPLUS, CK, ESR, TSH3, CBC, T4F, CMP #### [facility] [address] [place] [address] [place] #### ALDOLASE, RPR W RFX #### [facility] , Eosinophils Auto (Bld) [#/Vo l]Ordered By: Anuj Diaz on 11-10-2023 Eosinophils (Bld) [#/Vol] 0.2 10*3/uL 0.0-0.45 [facility] Eosinophils/100 WBC Auto (Bl d)Ordered By: Anuj Diaz on 11-10-2023 Eosinophils/100 WBC (Bld) 2.8 % . [facility] Erythrocyte Sedimentation Ra silverio 11-10-2023 ESR (Bld) [Velocity] 16 mm/h Normal 0-29 [facility] Comment on above: Result Comment: PERF ORMED BY: [place] [address] PATHOLOGIST CLAY CASTER VANDA FARRAR M.D. Performed By: #### T HYGLOB AB, CH50, C3, TPO, SANJUANITA, CHROMATIN, C4 #### [facility] , Erythrocyte distribution wid th Auto (RBC) [Ratio]Ordered By: Anuj Diaz on 11-10-2023 Erythrocyte distribution width (RBC) [Ratio] 15.9 % 11.9-15.3 [facility] Erythrocyte sedimentation ra te by Photometric methodOrdered By: Anuj Diaz on 11-10-2023 ESR Photometric method (Bld) [Velocity] 16 mm/hr 0-29 [facility] Erythrocytes [#/area] in Uri ne sediment by Automated countOrdered By: Anuj Diaz on 11-10-2023 RBC Auto (Urine sed) [#/Area] 0-1 [HPF] 0-4 [facility] Free T4 (Free Thyroxine)on 0 - Free T4 [Mass/Vol] 1.21 ng/dL High 0.61-1.12 [facility] Comment on above: Performed By: #### T HYGLOB AB, CH50, C3, TPO, SANJUANITA, CHROMATIN, C4 #### [facility] , Globulin Calc (S) [Mass/Vol] Ordered By: Anuj Diaz on 11-10-2023 Globulin (S) [Mass/Vol] 2.2 g/dL [facility] Glucose [Mass/volume] in Ser um or PlasmaOrdered By: Anuj Diaz on 11-10-2023 Glucose [Mass/Vol] 93 mg/dL 70-100 [facility] Comment on above: ADA recommended refe rence rangeRandom Glucose Reference Range is dependent on time and content of last meal. Glucose of more than 200 mg/dL in a nonstressed, ambulatory subject supports the diagnosis of Diabetes Mellitus. Hematocrit Auto (Bld) [Volum e fraction]Ordered By: Anuj Diaz on 11-10-2023 Hematocrit (Bld) [Volume fraction] 42.8 % 34.0-46.4 [facility] Hemoglobin [Mass/volume] in BloodOrdered By: Anuj Diaz on 11-10-2023

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
--- OUTSIDE RECORDS SUMMARY | 2024-12-28 22:35 | XMS_ITS | Clinical Summary ---
Author Organization [facility] Address [address] [place], [place] [id number] Care Team Providers Care Christmas Tree Farm Manager Name Role Phone Kolby Mendez DOKt Raoul Primary Care Provi jose miguel Allergies Active Allergy Reactions Criticality Noted Date Comments Acetaminophen 04/21/2001 Codeine 04/21/2001 Sulfa (Sulfonamide Antibiotics) 03/28 Medications CARAFATE TABLET 1G PO bid 0 0 04/21/2001 Active CITRACAL + D TABLET 315MG-200U PO two tabs Qd 0 0 04/21/2001 Active VITAMIN E CAPSULE 400U PO Take one(1) capsule daily. 0 0 04/21/2001 Active MULTIVITAMIN TABLET PO Take one(1) tablet daily. 0 0 04/21/2001 Active CORGARD TABLET 40MG PO 1 tab Qd 0 0 04/21/2001 Active MIDRIN CAPSULE PO prn 0 0 04/21/2001 Active Social History Tobacco Use Types Packs/Day Years Used Date Smoking Tobacco: Never Assessed Comments No Sex and Gender Information Value Date Recorded Sex Assigned at Not on file Legal Sex Female 9:45 AM EST Gender Identity Not on file Sexual Orientation Not on file Last Filed Vital Signs Vital Sign Reading Time Taken Comments Blood Pressure 112/66 04/21/2001 1:15 PM EDT Pulse 52 04/21/2001 1:15 PM EDT Temperature - - Respiratory Rate - - Oxygen Saturation - - Inhaled Oxygen Concentration - - Weight 59.2 kg (130 lb 8 oz) 04/21/2001 1:15 PM EDT Height - - Body Mass Index - - Plan of Treatment Health Maintenance Due Date Last Done Comments Anxiety Screening 1967 Depression Screening 1967 Hepatitis C Screening 1967 DTaP,Tdap,Td Vaccine (1 - Tdap) 1968 CT Colonography 1994 Cologuard (FIT-DNA) 1994 Colonoscopy 1994 Colorectal Cancer Screening 1994 Fecal Occult Blood 1994 Lipid Screening 1994 Sigmoidoscopy 1994 Pneumococcal Vaccine: 50+ (1 of 1 - PCV) 1999 Shingrix Vaccine (1 of 2) 1999 Diabetes Screening 02/11/2004 02/10/2001 Bone Density Screening 2014 Covid-19 Vaccine (1 - 2023-25 season) 2024 Advance Directive Discussion 06/27/2024 RSV Vaccine (1 - 1-dose 75+ series) 2024 Influenza Vaccine (#1) 2025 Procedures Procedure Name Priority Date/Time Associated Diagnosis Comments BASIC METABOLIC PANEL 02/10/2001 3:40 PM EDT from Last 3 Months or Most Recently Relevant to Health Maintenance Results * BASIC CHEMISTRY PKG (02/10/2001 3:40 PM EDT) Glucose 87 65 - 110 mg/dL [facility] BUN 12 8 - 25 mg/dL [facility] Creatinine 0.9 0.7 - 1.4 mg/dL [facility] Sodium 141 132 - 148 mmol/L [facility] Potassium 3.7 3.5 - 5.0 mmol/L [facility] Chloride 102 98 - 110 mmol/L [facility] CO2 31 24 - 32 mmol/L [facility] Anion Gap 8 0 - 15 mmol/L [facility] Calcium 10.0 8.5 - 10.5 mg/dL [facility] 02/10/2001 3:40 PM EDT Torey Chris DO LABORATORY Final Result [facility] [address] [place] [address] from Last 3 Months or Most Recently Relevant to Health Maintenance Insurance [employer] Member Subscriber Plan / Payer (Ef fective 1995-Present) Name:Jennifer Antunez Relation to Subscriber:Spouse Name:BHUPINDER ANTUNEZ Date of :1937 Phone:[phone] (Home) Phone:[phone] (Work) Address: [facility] [place] [address] Payer ID:[id number] (NAIC) Type:Indemnity Address: [facility] [id number] [place] [address] Care Teams Christmas Tree Farm Manager Relationship Specialty Start Date End Date Kt Jarrett Jr., DO [address] [place] [address] [place] [phone] PCP - General 04/29/01
--- OUTSIDE RECORDS SUMMARY | 2024-12-28 22:35 | XMS_ITS | Clinical Summary ---
Author Organization [facility] Address [address] [place] [address] Care Team Providers Care Stonecutter Assistant Name Role Phone Unavailable Primary Care Provider Unavailabl e Social History Tobacco Use Types Packs/Day Years Used Date Smoking Tobacco: Never Assessed Comments Unknown Sex and Gender Information Value Date Recorded Sex Assigned at Not on file Legal Sex Female 8:11 PM EDT Gender Identity Not on file Sexual Orientation Not on file Last Filed Vital Signs Vital Sign Reading Time Taken Comments Blood Pressure 141/84 11/25/2017 12:00 PM EDT Pulse - - Temperature - - Respiratory Rate - - Oxygen Saturation - - Inhaled Oxygen Concentration - - Weight 59.9 kg (132 lb) 11/25/2017 12:00 PM EDT Height 156.2 cm (5' 1.5 ) 11/25/2017 12:00 PM ED T Body Mass Index 24.54 11/25/2017 12:00 PM EDT Plan of Treatment Not on file
--- NOTE | 2024-12-28 23:05 | XR_ITS ---
[place] [id number] Patient Name: YEE ANTUNEZ MRN: [id number] date: 1950 Sex: F Assigned Patient Location: ER Current Patient Location: Accession/Order Number: [id number] Exam Date: 12/29/2024 09:29 Report Date: 12/29/2024 09:30 At the request of: TRICIA ECHOLS MD Procedure: XR knee LT 3V 4 views left knee plain film COMPARISON: None HISTORY: Fell. Left knee pain ACUTE FINDINGS: No acute findings DEGENERATIVE CHANGE: Moderate SOFT TISSUE FINDINGS: Unremarkable JOINT EFFUSION: None POSTOP CHANGES: None BONE MINERALIZATION: Adequate XR/XR knee LT 3V IMPRESSION: No acute findings Impression dictated by: Rigo Ascencio M.D. 12/29/2024 9:30 AM Dictation Location: [place] [id number] Electronically authenticated by: [id number] Y Date: 12/29/2024 09:30
--- NOTE | 2024-12-28 23:09 | ED_ITS ---
HPI HPI - Head Injury General Chief complaint: Head Injury Stated complaint: facial injury Time Seen by Provider: 12/28/24 22:59 Source: patient Mode of arrival: walk-in Limitations: no limitations History of Present Illness HPI Narrative: tripped yesterday and fell striking about her left eye. No LOC. Today she tripped over the water hose and fell striking her face on the ground. Neg. LOC. complains of pain of her nose and face. Dizziness earlier has resolved. No nausea or vomiting. Neg neck pain. Has bilat knee abrasions .Pain of the left knee but not the right. Neg hip pain, chest pain or back pain. No extremity weakness Related Data Previous Rx's �Medication �Instructions �Recorded diphenhydramine HCl 25 mg capsule 25 mg PO Q8H PRN all ergic reaction 02/27/23 (Benadryl) #20 caps famotidine 20 mg tablet (Pepcid) 20 mg PO DAILY #20 ta bs 02/27/23 prednisone 50 mg tablet 50 mg PO DAILY #5 tabs 02/27 Allergies Allergy/AdvReac Type Severity Reaction Status Date / Time codeine Allergy Unknown Unknown Verified 12/28/24 22:39 levofloxacin Allergy Unknown Unknown Verified 12/28/24 22:39 Sulfa (Sulfonamide Allergy Unknown Unknown Verified 12/28/24 22:39 Antibiotics) bee venom Allergy Unknown Unknown Uncoded 12/28/24 22:39 iv dye Allergy Unknown Unknown Uncoded 12/28/24 22:39 Review of Systems ROS Status of ROS 10 or more systems reviewed and unremark able except as noted in history and below PFSH PFSH Social History Little interest or pleasure in doing things: not at all Feeling down, depressed, or hopeless: not at all Exam Constitutional Vital Signs, click to edit/add: Last Vital Signs Temp 98.5 F 12/28/24 22:40 Pulse 63 12/28/24 23:58 Resp 19 12/28/24 23:58 BP 141/99 H 12/29/24 02:30 Pulse Ox 97 12/29/24 02:30 O2 Del Method Room Air 12/28/24 22:40 Common normals: no apparent distress, average body habitus, oriented x3, no limitations, healthy appearing, alert and well nourished [facility] Other: multiple areas of facial abrasions, no lacerations Eye Common normals: PERRL and EOMs intact bilaterally Neck & C-Spine Common normals: full ROM and supple Chest Common normals: inspection of chest normal and palpation of chest normal Respiratory Common normals: normal respiratory effort, no retractions, no use of accessory muscles and clear to auscultation bilaterally Cardio Common normals: regular rate, regular rhythm, S1 normal heart sound and S2 normal heart sound GI Common normals: Normal to inspection, nondistended, normoactive bowel sounds present, soft to palpation and non-tender Back & Pelvis Common normals: no CVA tenderness and thoracic and lumbar spine normal to inspection Extremity Other: minor abrasion overlying patella both knees. L with mild swelling hips nontender. No pain with ROM of the hips Neuro Common normals: oriented x3, CN's II-XII intact bilaterally, moves all extremities and no focal motor deficits Psych Appearance: grossly normal Course Vital Signs Vital signs: Vital Signs Blood Pressure 164/72 H 12/28/24 22:33 Pulse Oximetry 97 12/28/24 22:33 Temperature 98.5 F 12/28/24 22:40 Pulse Rate 63 12/28/24 23:58 Respiratory Rate 19 12/28/24 23:58 Blood Pressure 141/99 H 12/29/24 02:30 Pulse Oximetry 97 12/29/24 02:30 Oxygen Delivery Method Room Air 12/28/24 22:40 MDM - Head Injury MDM Narrative Medical decision making narrative: patient fell one day [employer] striking her left periorbital area and today she tri pped over water hose striking her face. Has several abrasions of her face. CT with finding of mildly displaced nasal bone fracture and minimally displaced nasal septal fracture. Xray of her left knee per my preliminary review with what appears to be a bipartite patella. Patient informed the official reading is pending and we will call her if there is a different final diagnosis. she is also provided a tetnaus shot. She is to follow up with her doctor next week for recheck Discharge Plan Discharge Chief Complaint: Head Injury Clinical Impression: Closed head injury, Contusion of face, Fracture closed, nasal bone, Contusion of knee, left Patient Disposition: Home, Self-Care Prescriptions / Home Meds: No Action prednisone 50 mg tablet 50 mg PO DAILY Qty: 5 0RF famotidine [Pepcid] 20 mg tablet 20 mg PO DAILY Qty: 20 0RF diphenhydramine HCl [Benadryl] 25 mg capsule 25 mg PO Q8H PRN (Reason: allergic reaction) Qty: 20 0RF Print Language: Tongan Instructions: Nasal Fracture (ED), Head Injury (ED), Facial Contusion (ED) Additional Instructions: follow up with your doctor next week for recheck Referrals: JORGE GATES DO [Primary Care Provider, Family Practice] - 1 week Discharge Date/Time: 12/29/24 02:41
[2024-12-29] VITALS (16 sets, daily range): BP systolic 114–148; BP diastolic 59–99; O2SAT 94–99
--- NOTE | 2024-12-29 00:04 | PC.NURSE ---
this patient awake and alert sitting upright on the bed talking to her family. i informed her that now we are still waiting on ct results to come back. this patient voices no concerns or needs and shows no signs of distress
[2024-12-29] MEDS: ACETAMINOPHEN 500 MG TABLET 1000 MG PO (02:24)
--- NOTE | 2024-12-29 02:41 | PC.NURSE ---
i gave this patient verbal and written discharge orders and this patient voices yes to understanding these. at time of discharge this patient nor her voices no concerns, needs and this patient shows no signs of distress
== END 2024-12-29 02:41 | disposition home or self-care (01) ==
PROVIDERS: Emergency Provider Internal Medicine; PCP Internal Medicine
DX: S02.2XXA Fracture of nasal bones, initial encounter for closed fracture (principal); S00.83XA Contusion of other part of head, initial encounter; S09.8XXA Other specified injuries of head, initial encounter; S80.212A Abrasion, left knee, initial encounter; S80.211A Abrasion, right knee, initial encounter; W01.0XXA Fall on same level from slipping, tripping and stumbling without subsequent striking against object, initial encounter; S80.02XA Contusion of left knee, initial encounter
CPT/HCPCS: 70450; 70486; 72125; 73562; 99284